=== PATIENT | male | born 1965 | race Asian ===

== ENCOUNTER 2024-09-05 10:23 | Outpatient (AMB) | payer OTHER, SELFPAY ==
--- NOTE | 2024-09-05 10:26 | A.OFFVIS_ITS ---
Vital Signs 09/05/24 10:28 Height 5 ft 9 in Weight 194 lb 4 oz BMI 28.7 BP 136/78 Blood Pressure Location Lt brachial Position Sitting Pulse 75 Pulse Source Pulse Oximeter Pulse Oximetry (%) 98 Oxygen Delivery Method Room Air Intake Visit Reasons: sleep apnea Allergies Penicillins Allergy (Intermediate, Verified 09/05/24 10:31) Unknown HPI HPI sleep apnea: Details: Jose is a pleasant 59 year old male, former 40 pack year smoker, quit 2000, with underlying CRISELDA on CPAP, asthma, HTN, DMII and hyperthyroidism. He was referred by PCP for management of CRISELDA. He has been using a CPAP machine for approximately 20 years, initially diagnosed with severe sleep apnea. Prior to initiating CPAP, he reported significant daytime fatigue, loud snoring, nonrestorative sleep and witnessed apneas. The patient reports no recent sleep studies and has had fluctuations in weight since initial study. He is not established with a [employer]. He is currently under the care of an operations supervisor chemical cleaning, managing asthma, who placed patient on Symbicort and levalbuterol however symptoms are infrequent and does not feel he needs respiratory medications. At this time, he denies respiratory symptoms. [facility] Social History (Updated 09/05/24 @ 10:31 by Cici Knight [facility]) Patient Tobacco Use Status: Former Tobacco user Review of Systems Const Denies chills, Denies excessive sweating, Denies fever(s), Denies headache(s) and Denies night sweats Eyes Denies dry eyes, Denies irritation and Denies itchy eyes ENT Reports Normal hearing present, Denies headache(s), Denies nasal congestion, Denies nasal discharge, Denies post nasal drip and Denies sore throat Card Denies chest pain, Denies chest pain at rest, Denies chest pain with activity, Denies claudication, Denies leg edema, Denies dyspnea, Denies dyspnea on exertion, Denies orthopnea and Denies paroxysmal nocturnal dyspnea Resp Denies chest congestion, Denies cough, Denies excessive phlegm production, Denies pain on inspiration, Denies pain with cough, Denies dyspnea, Denies dyspnea on exertion, Denies stridor and Denies wheezing Musc Denies myalgias Neuro Reports Normal hearing present and Denies headache(s) Endo Denies excessive sweating Dharmesh/Lymph Denies lymphadenopathy Aller/Immun Denies itchy eyes, Denies seasonal rhinorrhea and Denies wheezing Physical Exam Vital Signs: Last Vital Signs Pulse 75 09/05/24 10:28 BP 136/78 09/05/24 10:28 Pulse Ox 98 09/05/24 10:28 Oxygen Delivery Method Room Air 09/05/24 10:28 BMI result Body Mass Index 28.7 Const General: cooperative, healthy appearing, comfortable, no acute distress, well developed and alert Nutritional Appearance: obese Orientation/consciousness: patient oriented x3 Limitations: no limitations HEENT Head: Yes normal to inspection, Yes normocephalic and Yes atraumatic Ears: hearing grossly normal bilaterally and external ears normal Eyes General: appearance normal, both eyes and all related structures Eyelids: Yes eyelids normal Sclerae: sclerae normal EOM: EOMs intact bilaterally Neck Neck: Yes normal visual inspection and Yes no lymphadenopathy Lymphatic: no lymphadenopathy noted Chest Chest palpation & inspection: normal inspection of the chest Resp Effort & Inspection: normal respiratory effort, able to speak in complete sentences, no audible wheezes, no cough, no stridor, not tachypneic, no tripod positioning and no use of accessory muscles Auscultation: clear to auscultation bilaterally Cardio Jugular venous distension: no JVD Rate: regular rate Rhythm: regular rhythm Skin Other: warm, dry General skin exam: no rashes or lesions noted Neuro General: patient oriented x3 Cranial nerves: Yes Normal hearing present Cognition (Neuro): normal cognition Gait exam (Neuro): Normal gait present Extrem General: Yes normal to inspection, Yes capillary refill normal, Yes no clubbing, cyanosis or edema and Yes no pedal edema Psych Appearance: grossly normal and well kempt Speech and movement: Normal speech and movement present and Clear speech present Affect: normal affect Attitude: cooperative Thought process: Normal thought process present Thought content: Normal thought content present Insight: Good insight present (Psych) Judgement: Good judgement present (Psych) Assessment & Plan Assessment & Plan (1) Severe obstructive sleep apnea: Code(s): G47.33 - Obstructive sleep apnea (adult) (pediatric) Category: Medical Plan We discussed the need for a new sleep study to evaluate his current obstructive sleep apnea status and CPAP requirements, given prior PSG was 20 years ago and has had fluctuations in weight. Will send for home sleep study with the potential need for in lab titration study. We reviewed the potential for a new CPAP machine and the importance of compliance with therapy. All questions were answered and patient is in agreement of plan. Will follow up to review results or sooner if needed. Orders: Orders RT home sleep study Today G47.33 - Obstructive sleep apnea (adult) (pediatric) Coding Level of Care Code New Pt Level 3 (80569) Diagnoses Severe obstructive sleep apnea G47.33
[2024-09-05 10:28] VITALS: BP 136/78; PULSE 75; O2SAT 98; BMI 28.7
--- OUTSIDE RECORDS SUMMARY | 2024-09-05 11:09 | XMS_ITS | Clinical Summary ---
Author Organization [facility] Address [address] [place] [phone] Phone Care Team Providers Care Recruitment Coordinator Name Role Phone Alyse Jamil MD Primary Care Provider [phone] Encounters Date Type Department Care Team Description 07/16/2024 Telephone [facility] [address] [facility] [address] [place] [address] Jamel Galloway MD Records from Last 3 Months Medical History Medical History Date Comments Asthma DX:Asthma Cough DX:Cough 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 (CMS/HCC V24, CMS/HCC V28) DX:Type 2 marissa betes mellitus with complications ([facility]) Social History Tobacco Use Types Packs/Day Years Used Date Smoking Tobacco: Unknown Sex and Gender Information Value Date Recorded Sex Assigned at Not on file Legal Sex Male 2:11 AM EST Gender Identity Not on file Sexual Orientation Not on file Obstetrics History Last Filed Vital Signs Vital Sign Reading Time Taken Comments Blood Pressure 130/68 10/26/2023 2:58 PM EDT Pulse 67 10/26/2023 2:58 PM EDT Temperature - - Respiratory Rate - - Oxygen Saturation - - Inhaled Oxygen Concentration - - Weight 92.1 kg (203 lb) 10/26/2023 2:58 PM EDT Height 175.3 cm (5' 9 ) 07/03/2023 2:31 PM EDT Body Mass Index 29.98 07/03/2023 2:31 PM EDT Plan of Treatment Upcoming Encounters Date Type Department Care Team ([facility] st Contact Info) Description 10/09/2024 8:[address] [facility] [address] [place] [address] Health Maintenance Due Date Last Done Comments COVID-19 Vaccine (#1) 08[birth year]29/1970 DTaP,Tdap,and Td Vaccines (1 - Tdap) 1985 Hepatitis B Vaccines (1 of 3 - 19+ 3-dose series) 1985 Pneumococcal Vaccine: 50+ Years (1 of 1 - PCV) 2016 Zoster Vaccines (1 of 2) 2016 Cholesterol Screening (Lipid Panel) 02/12/2022 Depression Screening 02/12/2022 HIV Screening 02/12/2022 Hepatitis C Screening 02/12/2022 Social Influencers of Health Screening 02/12/2022 Influenza Vaccine (Season Ended) 2024 Colorectal Cancer Screening: FIT-DNA (Cologuard) 09/05/2026 09/06/2023, 09/06/2023, 08/23/2019 HIB Vaccines Aged Out No longer eligi ble based on patient's age to complete this topic HPV Vaccines Aged Out No longer eligi ble based on patient's age to complete this topic Hepatitis A Vaccines Aged Out No long er eligible based on patient's age to complete this topic IPV Vaccines Aged Out No longer eligi ble based on patient's age to complete this topic MMR Vaccines Aged Out No longer eligi ble based on patient's age to complete this topic Meningococcal ACWY Vaccine Aged Out N o longer eligible based on patient's age to complete this topic Meningococcal B Vaccine Aged Out No l onger eligible based on patient's age to complete this topic Pneumococcal Vaccine: Pediatrics (0 to 5 Years) and At-Risk Patients (6 to 64 Years) Aged Out No longer eligible b ased on patient's age to complete this topic RSV Immunization Patients Under 20 months Aged Out No longer eligible b ased on patient's age to complete this topic Varicella Vaccines Aged Out No longer eligible based on patient's age to complete this topic Insurance [employer] Care Teams Recruitment Coordinator Relationship Specialty Start Date End Date Alyse Jamil MD PCP - General 02/19/23
== END 2024-09-05 11:02 | disposition home or self-care (01) ==
LOC: HO.HPSW 10:24
PROVIDERS: Visit Provider Nurse Practitioner Family
DX: G47.33 Obstructive sleep apnea (adult) (pediatric) (principal)
CPT/HCPCS: 99203

== ENCOUNTER → 2024-11-19 09:29 | Outpatient (REF) | payer OTHER, SELFPAY ==
--- OUTSIDE RECORDS SUMMARY | 2024-11-19 11:20 | XMS_ITS | Patient Health Record ---
Author Organization [facility] [address] Address [address] [facility] [place] [address] Care Team Providers Care Acute Care Occupational Therapist Name Role Phone TOMMY JAMIL Unavailable [phone] EDWINYASMINE Llanos Unavailable [phone] ASHLYN CALERO Unavailable [phone] Allergies Allergen (clinical drug ingredient) Drug/Non Drug Allergy documented on EMR Reaction Allergy Type Onset Date Status PCN (uncoded) rash Allergy Active albuterol Albuterol heart palpitations Drug Allergy Active Pollen Pollen Unknown Allergy Active Results Component Value Reference Range Notes EKG Reviewed date:06/18/2024 10:14:51 AM Interpretation: Performing Lab: Notes/Report: ECGDiastolicBP 78 ECGHr 82 ECGPRInterval 200 ECGPWaveAxis 42 ECGQRSDuration 100 ECGQrsWaveAxis 4 ECGQTcInterval 404 ECGQTInterval 366 ECGSystolicBP 132 ECGTWaveAxis 136 RR_DiastolicBP 0 RR_MaxRRInterval 0 RR_MeanHR 0 RR_MeanRRInterval 0 RR_MinRRInterval 0 RR_NumBeats 0 RR_NumNormalBeats 0 RR_SystolicBP 0 TSH+T3+Free T4+T3 Free Reviewed date:11/03/2024 12:05:17 PM Interpretation: Performing Lab:[facility], [address], [place], Phone - [phone], Director - Teodoro Notes/Report: TSH-ICMA 0.29 Reference Range: Non- Adult 0.450-4.500 Triiodothyronine (T-3), Serum 101 Reference Range: Adults: 55 - 170 Free T-3 3.8 Reference Range: >=20y: 2.0 - 4.4 Free T4 by Dialysis/Print Washer 1.5 This test was developed and its performance characteristics determined by [facility]. It has not been cleared or approved by the Food and Drug Administration. Reference Range: Pubertal Children and Adults: 0.8 - 1.7 Hemoglobin A1c Reviewed date:11/03/2024 12:05:22 PM Interpretation: Performing Lab:[facility] [place], [address] [facility], Phone - [phone], Director - Teodoro Notes/Report: Hemoglobin A1c 7.6 Reference Range: [place] Diabetes Association (ADA) Guidelines: <5.7: Decreased risk for diabetes 5.7 - 6.4: Increased risk for diabetes >6.4: Ongoing Hyperglycemia of any cause <7.0: Glycemic control for adults with diabetes Estimated Average Glucose 171 PSA (Reflex To Free) (Serial )-[id number] Reviewed date:11/03/2024 08:20:01 AM Interpretation: Performing Lab:[facility] [place], [address] [facility], Phone - [phone], Director - Teodoro Notes/Report: Prostate Specific Ag 0.7 0.0-4.0 ng/mL Hortensia ECLIA methodology. . According to the [place] [employer], Serum PSA should decrease and remain at undetectable levels after radical prostatectomy. The AUA defines biochemical recurrence as an initial PSA value 0.2 ng/mL or greater followed by a subsequent confirmatory PSA value 0.2 ng/mL or greater. Values obtained with different assay methods or kits cannot be used interchangeably. Results cannot be interpreted as absolute evidence of the presence or absence of malignant disease. Reflex Criteria The percent free PSA is performed on a reflex basis only when the total PSA is between 4.0 and 10.0 ng/mL. Comp. Metabolic Panel (14)-3 Reviewed date:11/03/2024 12:05:06 PM Interpretation: Performing Lab:[facility] [place], [address] , [place], Phone - [phone], Director - Teodoro Notes/Report: Glucose 154 70-99 mg/dL BUN 11 6-24 mg/dL Creatinine 0.79 0.76-1.27 mg/dL eGFR 103 >59 mL/min/1.73 BUN/Creatinine Ratio 14 9-20 Sodium 143 134-144 mmol/L Potassium 3.7 3.5-5.2 mmol/L Chloride 104 96-106 mmol/L Carbon Dioxide, Total 21 20-29 mmol/L Calcium 9.2 8.7-10.2 mg/dL Protein, Total 6.6 6.0-8.5 g/dL Albumin 4.5 3.8-4.9 g/dL Globulin, Total 2.1 1.5-4.5 g/dL Bilirubin, Total 0.5 0.0-1.2 mg/dL Alkaline Phosphatase 74 44-121 IU/L AST (SGOT) 24 0-40 IU/L ALT (SGPT) 51 0-44 IU/L Lipid Panel-[id number] Reviewed date:11/03/2024 12:05:12 PM Interpretation: Performing Lab:[email or web address], [address] [facility], Phone - [phone], Director - Teodoro Notes/Report: Cholesterol, Total 152 100-199 mg/dL Triglycerides 82 0-149 mg/dL HDL Cholesterol 39 >39 mg/dL VLDL Cholesterol Luis Carlos 16 5-40 mg/dL LDL Chol Calc (NIH) 97 0-99 mg/dL Vitamin D, 71-[id number] Reviewed date:11/03/2024 12:06:10 PM Interpretation: Performing Lab:[email or web address] [place], [address] , [place], Phone - [phone], Director - Teodoro Notes/Report: Vitamin D, 25-Hydroxy 18.6 30.0-100.0 ng/mL Vitamin D deficiency has been defined by the [place] of [employer] and an Endocrine Society practice guideline as a level of serum 25-OH vitamin D less than 20 ng/mL (1,2). The Endocrine Society went on to further define vitamin D insufficiency as a level between 21 and 29 ng/mL (2). 1. IOM ([place] of [employer]). 2010. Dietary reference intakes for calcium and D. [place]: The National Academies Press. 2. Sadia MF, Sirena NC, Efren-Osiel GILMAN, et al. Evaluation, treatment, and prevention of vitamin D deficiency: an Endocrine Society clinical practice guideline. JCEM. 2010; 96(7):1911-30. CBC With Differential/Platel et-[id number] Reviewed date:11/03/2024 08:20:01 AM Interpretation: Performing Lab:[email or web address] [place], [address] , [place], Phone - [phone], [facility] Notes/Report: WBC 7.3 3.4-10.8 x10E3/uL RBC 4.76 4.14-5.80 x10E6/uL Hemoglobin 14.1 13.0-17.7 g/dL Hematocrit 42.0 37.5-51.0 % MCV 88 79-97 fL MCH 29.6 26.6-33.0 pg MCHC 33.6 31.5-35.7 g/dL RDW 13.4 11.6-15.4 % Platelets 205 150-450 x10E3/uL Neutrophils 65 Not Estab. % Lymphs 23 Not Estab. % Monocytes 7 Not Estab. % Eos 4 Not Estab. % Basos 1 Not Estab. % Neutrophils (Absolute) 4.7 1.4-7.0 x10E3/uL Lymphs (Absolute) 1.7 0.7-3.1 x10E3/uL Monocytes(Absolute) 0.5 0.1-0.9 x10E3/uL Eos (Absolute) 0.3 0.0-0.4 x10E3/uL Baso (Absolute) 0.1 0.0-0.2 x10E3/uL Immature Granulocytes 0 Not Estab. % Immature Grans (Abs) 0.0 0.0-0.1 x10E3/uL Vitamin [id number] Reviewed date:11/03/2024 08:11:16 AM Interpretation: Performing Lab:[facility] [place], [address] [facility], Phone - [phone], Director - [facility] Notes/Report: Vitamin B12 548 650-6878 pg/mL Comp. Metabolic Panel (14)-3 [id number] Reviewed date:12/18/2023 02:12:11 PM Interpretation: Performing Lab:[facility] [place], [address] [facility], Phone - [phone], [facility] Notes/Report: Glucose 156 70-99 mg/dL BUN 13 6-24 mg/dL Creatinine 0.87 0.76-1.27 mg/dL eGFR 101 >59 mL/min/1.73 BUN/Creatinine Ratio 15 9-20 Sodium 145 134-144 mmol/L Potassium 4.4 3.5-5.2 mmol/L Chloride 106 96-106 mmol/L Carbon Dioxide, Total 21 20-29 mmol/L Calcium 9.9 8.7-10.2 mg/dL Protein, Total 7.2 6.0-8.5 g/dL Albumin 4.8 3.8-4.9 g/dL Globulin, Total 2.4 1.5-4.5 g/dL Bilirubin, Total 0.4 0.0-1.2 mg/dL Alkaline Phosphatase 83 44-121 IU/L AST (SGOT) 31 0-40 IU/L ALT (SGPT) 46 0-44 IU/L Lipid Panel-[id number] Reviewed date:12/18/2023 02:12:11 PM Interpretation: Performing Lab:[email or web address], [address] [place] [address], Phone - [phone], Director - MDJodry Notes/Report: Cholesterol, Total 165 100-199 mg/dL Triglycerides 145 0-149 mg/dL HDL Cholesterol 40 >39 mg/dL VLDL Cholesterol Luis Carlos 26 5-40 mg/dL LDL Chol Calc (NIH) 99 0-99 mg/dL Albumin/Creatinine Ratio,Uri ne-[id number] Reviewed date:12/18/2023 02:12:11 PM Interpretation: Performing Lab:[email or web address], [address] [place] [address], Phone - [phone], Director - MDJodry Notes/Report: Creatinine, Urine 180.4 Not Estab. mg/dL Albumin, Urine 64.6 Not Estab. ug/mL Alb/Creat Ratio 36 0-29 mg/g creat Normal: 0 - 29 Moderately increased: 30 - 300 Severely increased: >300 CBC With Differential/Platel et-[id number] Reviewed date:12/18/2023 02:12:11 PM Interpretation: Performing Lab:[email or web address], [address] [place] [address], Phone - [phone], Director - MDJodry Notes/Report: WBC 7.9 3.4-10.8 x10E3/uL RBC 5.14 4.14-5.80 x10E6/uL Hemoglobin 15.8 13.0-17.7 g/dL Hematocrit 46.1 37.5-51.0 % MCV 90 79-97 fL MCH 30.7 26.6-33.0 pg MCHC 34.3 31.5-35.7 g/dL RDW 13.6 11.6-15.4 % Platelets 221 150-450 x10E3/uL Neutrophils 71 Not Estab. % Lymphs 19 Not Estab. % Monocytes 7 Not Estab. % Eos 2 Not Estab. % Basos 1 Not Estab. % Neutrophils (Absolute) 5.5 1.4-7.0 x10E3/uL Lymphs (Absolute) 1.5 0.7-3.1 x10E3/uL Monocytes(Absolute) 0.6 0.1-0.9 x10E3/uL Eos (Absolute) 0.2 0.0-0.4 x10E3/uL Baso (Absolute) 0.1 0.0-0.2 x10E3/uL Immature Granulocytes 0 Not Estab. % Immature Grans (Abs) 0.0 0.0-0.1 x10E3/uL Hemoglobin [id number] Reviewed date:12/18/2023 02:12:11 PM Interpretation: Performing Lab:[facility], Phone - [phone], Director - MDJodry Notes/Report: Hemoglobin A1c 8.8 4.8-5.6 % . Prediabetes: 5.7 - 6.4 Diabetes: >6.4 Glycemic control for adults with diabetes: <7.0 Triiodothyronine (T3), Free- [id number] Reviewed date:03/11/2024 08:00:28 AM Interpretation: Performing Lab:[email or web address] [address], Phone - [phone], Director - Vas[facility] Notes/Report: Triiodothyronine (T3), Free 3.5 2.0-4.4 pg/mL [id number] Reviewed date:03/11/2024 08:00:28 AM Interpretation: Performing Lab:[facility] [address], Phone - [phone], Director - MDJodry Notes/Report: TSH 0.558 0.450-4.500 uIU/mL Thyroxine (T4) Free, Direct- [id number] Reviewed date:03/11/2024 08:00:28 AM Interpretation: Performing Lab:[facility] [address], Phone - [phone], Director - MDJodry Notes/Report: T4,Free(Direct) 1.62 0.82-1.77 ng/dL Reason For Referral Reason evaluate & treat Diagnosis 1 Mouth breathing (R06 .5) Referral Organization [facility] SHAHIDA CARBALLO Referring Provider First Name ASHLYN Referring Provider Last Name GALILEA Referring Provider [facility] Internal edicine Referred Provider Specialty Ear, nose an d throat surgeon Clinical Notes BluLiam hernandez 01/11 09:00:14 AM > faxed pt info to [facility] p) [phone] f) [phone], Carleen Zayas 02/19/2024 02:48:55 PM > Scheduled for 08/29 at 11:15 am. Pt aware Referral Priority Routine Reason Evaluate& Treat Diagnosis 1 Uncontrolled mild pe rsistent allergic asthma (J45.30) Referral Organization [facility] SHAHIDA CARBALLO Referring Provider First Name TOMMY Referring Provider Last Name TONY Referring Provider [facility] edicine Referred Provider Specialty Allergy/Immu nology General Notes Barb Aguirre 2024 11:46:29 AM > filled out form for [facility] and faxed over with recent notes, T : [phone] F : [phone] Clinical Notes Carleen Zayas 02:56:59 PM > Scheduled for 06/05 at 9:30 am. Pt aware Referral Priority Routine Reason Dr soto Diagnosis 1 CRISELDA (obstructive sle ep apnea) (G47.33) Referral Organization [facility] SHAHIDA CARBALLO Referring Provider First Name ASHLYN Referring Provider Last Name GALILEA Referring Provider [facility] edicine Referred Provider Chloe Soto Referred Provider Specialty Pulmonology General Notes EVERETTE BARNARD 0 06/04/2024 10:22:35 AM >[address] [place] [address], [facility] [address] [address], [phone], [phone] Clinical Notes Carleen Zayas 07/2024 03:04:47 PM > The patient canceled his appointment for 06/25 and has not rescheduled yet Referral Priority Routine Reason Dr. Steele Diagnosis 1 CRISELDA (obstructive sle ep apnea) (G47.33) Referral Organization [facility] SHAHIDA CARBALLO Referring Provider First Name ASHLYN Referring Provider Last Name GALILEA Referring Provider 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) Referral Organization [facility] [address] Referring Provider First Name ASHLYN Referring Provider Last Name GALILEA Referring Provider [facility] Internal edicine Referred Provider Specialty Vascular Lety kristie General Notes JENNYADIRA THIBODEAUXEVERETTE 0 07/23/2024 04:14:07 PM >information filled out on form and faxed to [facility], [phone], fax: [phone] Clinical Notes Carleen Zayas 01:02:09 PM > refaxed [phone], Carleen Zayas 08/06/2024 01:40:51 PM > refaxed to [phone], Carleen Zayas 08/11/2024 01:37:33 PM >, EVERETTE BARNARD 08/15/2024 11:37:56 AM >[facility] does not see pt unless it is in the legs, resent referral to [facility], p- , [phone], Carleen Zayas 08/22/2024 02:33:54 PM > Scheduled for 09/23 at 8:20 am. Pt aware Referral Priority Routine Reason [facility] owens Diagnosis 1 Hiatal hernia (K44.9 ) Referral Organization [facility] [address] Referring Provider First Name ASHLYN Referring Provider Last Name GALILEA Referring Provider [facility] edicine Referred Provider Naya OWENS Referred Provider Specialty Gastroentero logy General Notes EVON EVERETTE 0 10/15/2024 10:45:36 AM >Information sent to Dr owens with [facility], p- [phone], f- [phone] Referral Priority Routine Medications Medication SIG (Take, Route, Frequency, Duration) Notes Start Date End Date Status Zituvio 50 MG 2 tablets Orally Onc e a day Active Viagra 100 MG 1 tablet as needed f or sex Orally Once a day; Duration: 30 day(s) Active FreeStyle Angelita 3 Sensor - as directed d x e11.8 every 14 days; Duration: 30 days 01/05/2022 Active Losartan Potassium 100 MG TAKE 1 TABLET BY MOUTH EVERY DAY; Duration: 90 Active Atorvastatin Calcium 20 MG TAKE 1 TABLET BY MOUTH EVERY DAY; Duration: 90 Active Ozempic (0.25 or 0.5 MG/DOSE) 2 MG/3ML as directed Subcutaneous once a week; Duration: 30 days Active Ozempic (1 MG/DOSE) 4 MG/3ML Inject 1mg once a week Subcutaneous once a week; Duration: 30 days 05/29/2024 Active Pen Finlayson 32G X 6 MM as directed; Dura tion: 30 days Active Propranolol HCl 40 MG TAKE 1 TABLET BY M OUTH TWICE A DAY; Duration: 90 Active amLODIPine Besylate 5 MG TAKE 1 TABLET B Y MOUTH EVERY DAY; Duration: 90 Active metFORMIN HCl 500 MG TAKE 1 TABLET BY MO UTH TWICE A DAY WITH FOOD; Duration: 90 Active Mounjaro 2.5 MG/0.5ML 2.5 mg Subcutaneou s weekly; Duration: 28 days 10/27/2024 Active Cholecalciferol 1.25 MG (87928 UT) 1 capsule Orally once a week; Duration: 60 days 10/27/2024 Active Klor-Con M20 20 MEQ TAKE 1 TABLET BY SHANNAN TH THREE TIMES A DAY WITH FOOD; Duration: 90 Active Omeprazole 20 MG TAKE 1 CAPSULE BY MO UTH EVERY DAY 30 MINUTES BEFORE MORNING MEAL; Duration: 90 Active Immunizations Vaccine Route Administration Date Status Comme nts Influenza, seasonal, injectable, preservative free, 3 yrs and above IM Intramuscular 02/19/2019 Administered Social History Tobacco Use: Social History Observation Description Date Details (start date - stop date) Never Smoker NA - NA Tobacco Use/Smoking Question Answer Notes Are you a nonsmoker Section Notes: [employer] Tob: None ETOH: Rare [employer] Tob: None ETOH: Rare [employer] Tob: None ETOH: Rare [employer] Tob: None ETOH: Rare [employer] Tob: None ETOH: Rare [employer] Tob: None ETOH: Rare [employer] Tob: None ETOH: Rare Problems Problem Type SNOMED Code ICD Code Onset Dates Problem Status W/U Status Risk Notes Problem Information temporarily unavailable 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) Active confirmed Problem Information temporarily unavailable Thyroiditis, unspecified (E06.9) Active confirmed Problem Information temporarily unavailable Type 2 diabetes mellitus with diabetic peripheral angiopathy without gangrene (E11.51) Active confirmed Problem Information temporarily unavailable Type 2 diabetes mellitus with hyperglycemia (E11.65) Active confirmed Problem Information temporarily unavailable Vitamin D deficiency, unspecified (E55.9) Active confirmed Problem Information temporarily unavailable Other obesity (E66.8) Active confirmed Problem Information temporarily unavailable Obesity, unspecified (E66.9) Active confirmed Problem Information temporarily unavailable Essential (primary) hypertension (I10) Active confirmed Problem Information temporarily unavailable Other atopic dermatitis (L20.89) Active confirmed Problem Information temporarily unavailable Mouth breathing (R06.5) Active confirmed Problem Information temporarily unavailable Encounter for screening for malignant neoplasm of prostate (Z12.5) Active confirmed Problem Information temporarily unavailable Encounter for screening for diabetes mellitus (Z13.1) Active confirmed Problem Information temporarily unavailable Encounter for screening for lipoid disorders (Z13.220) Active confirmed Problem Information temporarily unavailable Encounter for screening for other suspected endocrine disorder (Z13.29) Active confirmed Problem Information temporarily unavailable Cataract extraction status, left eye (Z98.42) Active confirmed Problem Information temporarily unavailable Hyperlipidemia, unspecified (E78.5) Active confirmed Problem Information temporarily unavailable Essential (primary) hypertension (I10) Active confirmed Problem Information temporarily unavailable Colon cancer screening (Z12.11) Active confirmed Problem Information temporarily unavailable Annual physical exam (Z00.00) Active confirmed Problem Information temporarily unavailable Vitamin D deficiency (E55.9) Active confirmed Problem Information temporarily unavailable Hypogonadism in male (E29.1) Active confirmed Problem Information temporarily unavailable Tinnitus, unspecified laterality (H93.19) Active confirmed Problem Information temporarily unavailable Accelerated essential hypertension (I10) Active confirmed Problem Information temporarily unavailable Type 2 diabetes mellitus with complications (E11.8) Active confirmed Problem Information temporarily unavailable Uncontrolled hypertension (I10) Active confirmed Problem Information temporarily unavailable CRISELDA (obstructive sleep apnea) (G47.33) Active confirmed Problem Information temporarily unavailable Type 2 diabetes mellitus without complication, without long-term current use of insulin (E11.9) Active confirmed Problem Information temporarily unavailable Type 2 diabetes mellitus without complication, unspecified whether halfway insulin use (E11.9) Active confirmed Problem Information temporarily unavailable Dyslipidemia (E78.5) Active confirmed Problem Information temporarily unavailable Hypothyroidism (acquired) (E03.9) Active confirmed Problem Information temporarily unavailable Bilateral hearing loss, unspecified hearing loss type (H91.93) Active confirmed Problem Information temporarily unavailable Complication of diabetes mellitus (E11.8) Active confirmed Problem Information temporarily unavailable Psoriasis (L40.9) Active confirmed Problem Information temporarily unavailable Poorly controlled diabetes mellitus (E11.65) Active confirmed Problem Information temporarily unavailable Controlled type 2 diabetes mellitus with hyperglycemia, without long-term current use of insulin (E11.65) Active confirmed Problem Information temporarily unavailable Atherosclerosis (I70.90) Active confirmed Problem Information temporarily unavailable Combined hyperlipidemia (E78.2) Active confirmed Problem Information temporarily unavailable Hyperthyroidism (E05.90) Active confirmed Problem Information temporarily unavailable Low blood potassium (E87.6) Active confirmed Problem Information temporarily unavailable Low potassium syndrome (E87.6) Active confirmed Problem Information temporarily unavailable Vision changes (H53.9) Active confirmed Problem Information temporarily unavailable New onset type 2 diabetes mellitus (E11.9) Active confirmed Problem Information temporarily unavailable Asthma (J45.909) Active confirmed Problem Information temporarily unavailable Encounter for screening for endocrine disorder (Z13.29) Active confirmed Problem Information temporarily unavailable Lipid screening (Z13.220) Active confirmed Problem Information temporarily unavailable Hyperglycemia due to diabetes mellitus (E11.65) Active confirmed Problem Information temporarily unavailable Type 2 diabetes with complication (E11.8) Active confirmed Problem Information temporarily unavailable Food sticks on swallowing (R13.10) Active confirmed Problem Information temporarily unavailable Uncontrolled mild persistent allergic asthma (J45.30) Active confirmed Problem Information temporarily unavailable 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) Active confirmed Vital Signs Heart Rate 76 /min 10/27/2024 Blood pressure diastolic 80 mm Hg 10/27/2024 Oximetry 93 % 10/27/2024 Height 69 in 10/27/2024 Blood pressure systolic 132 mm Hg 10/27/2024 Weight 193.4 lbs 10/27/2024 BMI 28.56 kg/m2 10/27/2024 Encounters Encounter Location Date Provider Diagnosis [facility] [address] [place] [address] 02/05/2024 ASHLYN GALILEA Type 2 diabetes with complication E11.[address] [address] [place] [address] 02/13/2024 TALAL JAMIL [facility] [address] [facility] [address] [place] [address] 04/24/2024 ASHLYN GALILEA [facility] [address] [address] 05/29/2024 ASHLYN GALILEA [facility] [address] [place] [address] 06/03/2024 ASHLYN GALILEA [facility] [address] [address] 06/18/2024 TALAL JAMIL Controlled type 2 di abetes mellitus with hyperglycemia, without long-term current use of insulin E11.65 [facility] [address] [address] 07/15/2024 ASHLYN GALILEA [facility] [address] [place] [address] 07/16/2024 ASHLYN GALILEA [facility] [address] [address] 07/21/2024 ASHLYN GALILEA [facility] [address] [address] 09/11/2024 ASHLYN GALILEA [facility] [address] [address] 10/09/2024 TALAL JAMIL [facility] [address] [place] [address] 10/23/2024 ASHLYN GALILEA [facility] [address] [address] 10/27/2024 ASHLYN GALILEA [facility] [address] [place] [address] 12/20/2023 YASMINE EDWIN Type 2 diabetes diaz itus without complication, without long-term current use of insulin E11.9 ; Hyperglycemia due to diabetes mellitus E11.65 ; Dyslipidemia E78.5 and Hypothyroidism (acquired) E03.[address] [address] [place] [address] 01/31/2024 ASHLYN GALILEA Type 2 diabetes with complication E11.8 ; Cataract extraction status, left eye Z98.42 ; Obesity, unspecified E66.9 ; Hyperthyroidism E05.90 ; Mouth breathing R06.5 and CRISELDA (obstructive sleep apnea) G47.[address] [place] [address] 03/13/2024 ASHLYN GALILEA Controlled type 2 di abetes mellitus with hyperglycemia, without long-term current use of insulin E11.65 ; Type 2 diabetes with complication E11.8 ; Cataract extraction status, left eye Z98.42 ; Obesity, unspecified E66.9 ; Hyperthyroidism E05.90 ; Mouth breathing R06.5 and CRISELDA (obstructive sleep apnea) G47.[address] [place] [address] 06/18/2024 ASHLYN GALILEA Controlled type 2 di abetes mellitus with hyperglycemia, without long-term current use of insulin E11.65 ; Type 2 diabetes with complication E11.8 ; Cataract extraction status, left eye Z98.42 ; Obesity, unspecified E66.9 ; Hyperthyroidism E05.90 ; Mouth breathing R06.5 ; CRISELDA (obstructive sleep apnea) G47.33 ; Chest pain, unspecified R07.9 ; Vitamin D deficiency, unspecified E55.9 ; Food sticks on swallowing R13.10 and Vision changes H53.[address] [place] [address] 10/27/2024 ASHLYN GALILEA Controlled type 2 di abetes mellitus with hyperglycemia, without long-term current use of insulin E11.65 ; Type 2 diabetes with complication E11.8 ; Cataract extraction status, left eye Z98.42 ; Obesity, unspecified E66.9 ; Hyperthyroidism E05.90 ; Mouth breathing R06.5 ; CRISELDA (obstructive sleep apnea) G47.33 ; Chest pain, unspecified R07.9 ; Vitamin D deficiency, unspecified E55.9 ; Food sticks on swallowing R13.10 ; Vision changes H53.9 and Encounter for examination of blood pressure without abnormal findings Z01.[address] [place] [address] 05/29/2024 ASHLYN GALILEA Controlled type 2 di abetes mellitus with hyperglycemia, without long-term current use of insulin E11.65 ; Type 2 diabetes with complication E11.8 ; Cataract extraction status, left eye Z98.42 ; Obesity, unspecified E66.9 ; Hyperthyroidism E05.90 ; Mouth breathing R06.5 and CRISELDA (obstructive sleep apnea) G47.33 Assessments Encounter Date Diagnosis (ICD Code) Assessment Notes Treatment Notes Treatment Clinical Notes Section Notes 01/31/2024 Type 2 diabetes with complication (ICD-10 - E11.8) Jose is a 58-year-old male with a past medical history of hypothyroidism, type 2 diabetes, essential hypertension, hyperlipidemia, cataract extraction, glaucoma who presents today for a 6-week follow-up visit with no acute concerns today. #Type 2 diabetes: Patient's last hemoglobin A1c in office was 8.8%, today's hemoglobin A1c is 8.7%. Patient is to continue taking Zituvio 50 mg tablets as well as Ozempic once weekly. Ozempic sample pen given in office today, patient shown how to properly inject himself, was given alcohol wipes and was injected today.We will recheck the patient's hemoglobin A1c at his follow-up appointment #Glaucoma: Patient states that he regularly follows with his diesel motor mechanic. #Nasal congestion: Patient states that he has been continuing to use Flonase, has tried mouth and nasal strips, has tried his CPAP nasal pillow however still continues to mouth breathe therefore ENT referral will be placed today. #Low TSH: Last TSH conducted on July 03, 2023 revealed a value of 0.297, patient did not obtain a T3 and T4, order placed for a repeat TSH, T3-T4 to further evaluate his thyroid function. All questions have been answered to patient's satisfaction. Patient verbalized understanding of diagnosis and treatments explained. Advised to call sooner prior to next visit it any questions/concerns arise. Case discussed with Alessandro HURTADO who reviewed the assessment and plan. Chart, medications, labs, vital signs reviewed. Dictation was accomplished with the use of [employer] voice recognition software, which is prone to medical misidentifications and grammatical errors. This are unintentional and the practitioner does try to identify and correct these, but some could still be present. Please do not hesitate to contact practitioner for clarification. 02/05/2024 Type 2 diabetes with complication (ICD-10 - E11.8) 01/31/2024 Cataract extraction status, left eye (ICD-10 - Z98.42) Jose is a 58-year-old male with a past medical history of hypothyroidism, type 2 diabetes, essential hypertension, hyperlipidemia, cataract extraction, glaucoma who presents today for a 6-week follow-up visit with no acute concerns today. #Type 2 diabetes: Patient's last hemoglobin A1c in office was 8.8%, today's hemoglobin A1c is 8.7%. Patient is to continue taking Zituvio 50 mg tablets as well as Ozempic once weekly. Ozempic sample pen given in office today, patient shown how to properly inject himself, was given alcohol wipes and was injected today.We will recheck the patient's hemoglobin A1c at his follow-up appointment #Glaucoma: Patient states that he regularly follows with his diesel motor mechanic. #Nasal congestion: Patient states that he has been continuing to use Flonase, has tried mouth and nasal strips, has tried his CPAP nasal pillow however still continues to mouth breathe therefore ENT referral will be placed today. #Low TSH: Last TSH conducted on July 03, 2023 revealed a value of 0.297, patient did not obtain a T3 and T4, order placed for a repeat TSH, T3-T4 to further evaluate his thyroid function. All questions have been answered to patient's satisfaction. Patient verbalized understanding of diagnosis and treatments explained. Advised to call sooner prior to next visit it any questions/concerns arise. Case discussed with Alessandro HURTADO who reviewed the assessment and plan. Chart, medications, labs, vital signs reviewed. Dictation was accomplished with the use of [employer] voice recognition software, which is prone to medical misidentifications and grammatical errors. This are unintentional and the practitioner does try to identify and correct these, but some could still be present. Please do not hesitate to contact practitioner for clarification. 03/13/2024 Controlled type 2 diabetes mellitus with hyperglycemia, without long-term current use of insulin (ICD-10 - E11.65) Jose is a 58-year-old male with a past medical history of hypothyroidism, type 2 diabetes, essential hypertension, hyperlipidemia, cataract extraction, glaucoma who presents today for a 6-week follow-up visit with no acute concerns today. #Type 2 diabetes: Patient's last hemoglobin A1c in office was 8.8%, patient is to continue taking Zituvio 50 mg tablets as well as increase Ozempic 0.5mg. #Glaucoma: Patient states that he regularly follows with his diesel motor mechanic.Stat es he is being seen in April for a potential surgery consultation #Nasal congestion: Patient states that he has been continuing to use Flonase, has tried mouth and nasal strips, has tried his CPAP nasal pillow. Has ENT appointment scheduled for August 2024 #Coughing fits: Patient encouraged to trial a alternative antihistamine such as Ngoc, Zyrtec or Claritin as his body may have developed a tolerance to Flonase oral medication. Additionally patient educated to utilize a humidifier in his home to ensure the areas moisturized as this may be contributing towards his coughing and sneezing. Reassuring that patient does have a ENT referral placed. #Low TSH: Last TSH conducted on July 03, 2023 revealed a value of 0.297. Repeat labs from February 2024 within normal limits. All questions have been answered to patient's satisfaction. Patient verbalized understanding of diagnosis and treatments explained. Advised to call sooner prior to next visit it any questions/concerns arise. Case discussed with Alessandro HURTADO who reviewed the assessment and plan. Chart, medications, labs, vital signs reviewed. Dictation was accomplished with the use of [employer] voice recognition software, which is prone to medical misidentifications and grammatical errors. This are unintentional and the practitioner does try to identify and correct these, but some could still be present. Please do not hesitate to contact practitioner for clarification. 05/29/2024 Controlled type 2 diabetes mellitus with hyperglycemia, without long-term current use of insulin (ICD-10 - E11.65) Jose is a 58-year-old male with a past medical history of hypothyroidism, type 2 diabetes, essential hypertension, hyperlipidemia, and glaucoma who presents to the office today for a preoperative visit. #Type 2 diabetes: Patient's Hemoglobin A1c in office today 7.9%, this is an improvement from the previous value of 8.8%. patient is to continue taking Zituvio 50 mg tablets as well as increase to Ozempic 1.0 mg. #Glaucoma: Surgery scheduled for June 23 and July 08. At this time patient is cleared for surgery we will fax office note over so the surgeon is aware of patient's A1c at this time #Nasal congestion: Patient states that he has been continuing to use Flonase, has tried mouth and nasal strips, has tried his CPAP nasal pillow. Has ENT appointment scheduled for August 2024. Consider Singulair at follow-up #Coughing fits: No improvement with antihistamine such as allograft, Zyrtec or Claritin. Additionally patient educated to utilize a humidifier in his home to ensure the areas moisturized as this may be contributing towards his coughing and sneezing. Reassuring that patient does have a ENT referral placed. #Low TSH: Last TSH conducted on July 03, 2023 revealed a value of 0.297. Repeat labs from February 2024 within normal limits. All questions have been answered to patient's satisfaction. Patient verbalized understanding of diagnosis and treatments explained. Advised to call sooner prior to next visit it any questions/concerns arise. Case discussed with Alessandro HURTADO who reviewed the assessment and plan. Chart, medications, labs, vital signs reviewed. Dictation was accomplished with the use of [employer] voice recognition software, which is prone to medical misidentifications and grammatical errors. This are unintentional and the practitioner does try to identify and correct these, but some could still be present. Please do not hesitate to contact practitioner for clarification. 06/18/2024 Controlled type 2 diabetes mellitus with hyperglycemia, without long-term current use of insulin (ICD-10 - E11.65) Jose is a 58-year-old male with a past medical history of hypothyroidism, type 2 diabetes, essential hypertension, hyperlipidemia, cataract extraction, glaucoma who presents today for a 6-week follow-up visit with no acute concerns today. #Intermittent blackout vision: At this time we will be conducting an extensive workup for this chief complaint. Patient states that this has been intermittently occurring for numerous years. Patient denies any chest pain, shortness of breath at this time. EKG in office does demonstrate, T wave abnormality, possible anterior lateral ischemia, after discussing with Dr. Jamil this is considered normal for this patient as he may have underlying heart disease.. Will be obtaining a barium swallow as the patient does have this chief complaint only upon swallowing, states that he intermittently feels a stuck sensation , consider ordering an endoscopy if barium swallow was negative. Additionally we will be ordering a thyroid ultrasound as the patient does have a history of hyperthyroidism to ensure there are no goiters, nodules compressing on the esophagus or airway potentially. Along with thyroid ultrasound, carotid artery ultrasound bilaterally will also be ordered to ensure there is no stenosis or occlusions at this time. Consider CT scan of the head with contrast if all scans are negative to ensure there are no compressing lesions on optic nerve causing the blurry sensation upon swallowing. Differential at this time is large including globus sensation, vasovagal reaction, mass compressing on optic chiasm, goiter of thyroid, esophageal stricture, achalasia or anxiety produced vision changes. #Type 2 diabetes: Patient's last hemoglobin A1c in office was 7.6%, patient is to continue taking Zituvio 50 mg tablets as well as increase Ozempic 1mg. #Glaucoma: Patient states that he regularly follows with his diesel motor mechanic. #Nasal congestion: Patient states that he has been continuing to use Flonase, has tried mouth and nasal strips, has tried his CPAP nasal pillow. Has ENT appointment scheduled for August 2024 #Coughing fits: Patient saw online merchant, was placed on a new albuterol inhaler and does have a follow-up scheduled in 4 months. Reassuring that patient does have a ENT referral placed. #Low TSH: Last TSH conducted on July 03, 2023 revealed a value of 0.297. Repeat labs from February 2024 within normal limits.Obtaining repeat TSH, T3-T4 and thyroid ultrasound for further evaluation. All questions have been answered to patient's satisfaction. Patient verbalized understanding of diagnosis and treatments explained. Advised to call sooner prior to next visit it any questions/concerns arise. Case discussed with Alessandro HURTADO who reviewed the assessment and plan. Chart, medications, labs, vital signs reviewed. Dictation was accomplished with the use of [employer] voice recognition software, which is prone to medical misidentifications and grammatical errors. This are unintentional and the practitioner does try to identify and correct these, but some could still be present. Please do not hesitate to contact practitioner for clarification. 06/18/2024 Type 2 diabetes with complication (ICD-10 - E11.8) Jose is a 58-year-old male with a past medical history of hypothyroidism, type 2 diabetes, essential hypertension, hyperlipidemia, cataract extraction, glaucoma who presents today for a 6-week follow-up visit with no acute concerns today. #Intermittent blackout vision: At this time we will be conducting an extensive workup for this chief complaint. Patient states that this has been intermittently occurring for numerous years. Patient denies any chest pain, shortness of breath at this time. EKG in office does demonstrate, T wave abnormality, possible anterior lateral ischemia, after discussing with Dr. Jamil this is considered normal for this patient as he may have underlying heart disease.. Will be obtaining a barium swallow as the patient does have this chief complaint only upon swallowing, states that he intermittently feels a stuck sensation , consider ordering an endoscopy if barium swallow was negative. Additionally we will be ordering a thyroid ultrasound as the patient does have a history of hyperthyroidism to ensure there are no goiters, nodules compressing on the esophagus or airway potentially. Along with thyroid ultrasound, carotid artery ultrasound bilaterally will also be ordered to ensure there is no stenosis or occlusions at this time. Consider CT scan of the head with contrast if all scans are negative to ensure there are no compressing lesions on optic nerve causing the blurry sensation upon swallowing. Differential at this time is large including globus sensation, vasovagal reaction, mass compressing on optic chiasm, goiter of thyroid, esophageal stricture, achalasia or anxiety produced vision changes. #Type 2 diabetes: Patient's last hemoglobin A1c in office was 7.6%, patient is to continue taking Zituvio 50 mg tablets as well as increase Ozempic 1mg. #Glaucoma: Patient states that he regularly follows with his diesel motor mechanic. #Nasal congestion: Patient states that he has been continuing to use Flonase, has tried mouth and nasal strips, has tried his CPAP nasal pillow. Has ENT appointment scheduled for August 2024 #Coughing fits: Patient saw online merchant, was placed on a new albuterol inhaler and does have a follow-up scheduled in 4 months. Reassuring that patient does have a ENT referral placed. #Low TSH: Last TSH conducted on July 03, 2023 revealed a value of 0.297. Repeat labs from February 2024 within normal limits.Obtaining repeat TSH, T3-T4 and thyroid ultrasound for further evaluation. All questions have been answered to patient's satisfaction. Patient verbalized understanding of diagnosis and treatments explained. Advised to call sooner prior to next visit it any questions/concerns arise. Case discussed with Alessandro HURTADO who reviewed the assessment and plan. Chart, medications, labs, vital signs reviewed. Dictation was accomplished with the use of [employer] voice recognition software, which is prone to medical misidentifications and grammatical errors. This are unintentional and the practitioner does try to identify and correct these, but some could still be present. Please do not hesitate to contact practitioner for clarification. 06/18/2024 Controlled type 2 diabetes mellitus with hyperglycemia, without long-term current use of insulin (ICD-10 - E11.65) 10/27/2024 Controlled type 2 diabetes mellitus with hyperglycemia, without long-term current use of insulin (ICD-10 - E11.65) Jose is a 58-year-old male with a past medical history of hypothyroidism, type 2 diabetes, essential hypertension, hyperlipidemia, cataract extraction, glaucoma who presents today for a 6-week follow-up visit with no acute concerns today. #Palpitations/tachyc ardia: Currently on propranolol per cardiology #Nasal congestion/allergies : Continue following with online merchant, last appointment was on October 22, 2024 #Swallowing difficulties: Patient did have a barium swallow completed that demonstrated a hiatal hernia, he states he is to have an endoscopy scheduled for December. #Questioning propranolol: Patient is to discuss disc continuing propranolol with his metal miner, this appointment is coming up soon #ENT: Ear nose and throat surgeon of [facility] contacted our office on 09/15/2024 in regards to patient discontinuing propranolol for allergy testing, cardiology was contacted and deemed this to be appropriate #Atherosclerotic plaque: Incidentally found on ultrasound of carotid arteries, both the right and left carotid bulbs 07/18/24.. Continue atorvastatin calcium 20 mg tablets consider coronary calcium scan at follow-up appointment #Intermittent blackout vision: Patient did have an ultrasound completed in regards to the chief complaint of intermittent blackout and blurry vision that demonstrated elevated velocity within the left subclavian artery, this was reported on 07/18/2024. A vascular surgery referral was placed and patient did see vascular on 09/23/2024 where an arterial duplex bilateral scan was obtained.. Patient states that he is continuing to follow with vascular...Different ial at this time is large including globus sensation, vasovagal reaction, mass compressing on optic chiasm, goiter of thyroid, esophageal stricture, achalasia or anxiety produced vision changes. #Type 2 diabetes: Patient's last hemoglobin A1c in office was 7.6%, patient is to continue taking Zituvio 50 mg tablets as well as Ozempic 1mg...Will see if patient may be approved for Mounjaro, this may optimize A1c control. #Glaucoma: Patient states that he regularly follows with his diesel motor mechanic. #History of hyperthyroidism: TSH, T3-T4 pending. Thyroid ultrasound additionally was completed that demonstrated subcentimeter left lobe nodule, no follow-up recommended. Minimally prominent normal-appearing lymph nodes in the neck presumably reactive #Vitamin D deficiency: Sending patient 50,000 units to be taken once weekly for 8 weeks. All questions have been answered to patient's satisfaction. Patient verbalized understanding of diagnosis and treatments explained. Advised to call sooner prior to next visit it any questions/concerns arise. Case discussed with Alessandro HURTADO who reviewed the assessment and plan. Chart, medications, labs, vital signs reviewed. Dictation was accomplished with the use of [employer] voice recognition software, which is prone to medical misidentifications and grammatical errors. This are unintentional and the practitioner does try to identify and correct these, but some could still be present. Please do not hesitate to contact practitioner for clarification. 10/27/2024 Type 2 diabetes with complication (ICD-10 - E11.8) Jose is a 58-year-old male with a past medical history of hypothyroidism, type 2 diabetes, essential hypertension, hyperlipidemia, cataract extraction, glaucoma who presents today for a 6-week follow-up visit with no acute concerns today. #Palpitations/tachyc ardia: Currently on propranolol per cardiology #Nasal congestion/allergies : Continue following with online merchant, last appointment was on October 22, 2024 #Swallowing difficulties: Patient did have a barium swallow completed that demonstrated a hiatal hernia, he states he is to have an endoscopy scheduled for December. #Questioning propranolol: Patient is to discuss disc continuing propranolol with his metal miner, this appointment is coming up soon #ENT: Ear nose and throat surgeon of [facility] contacted our office on 09/15/2024 in regards to patient discontinuing propranolol for allergy testing, cardiology was contacted and deemed this to be appropriate #Atherosclerotic plaque: Incidentally found on ultrasound of carotid arteries, both the right and left carotid bulbs 07/18/24.. Continue atorvastatin calcium 20 mg tablets consider coronary calcium scan at follow-up appointment #Intermittent blackout vision: Patient did have an ultrasound completed in regards to the chief complaint of intermittent blackout and blurry vision that demonstrated elevated velocity within the left subclavian artery, this was reported on 07/18/2024. A vascular surgery referral was placed and patient did see vascular on 09/23/2024 where an arterial duplex bilateral scan was obtained.. Patient states that he is continuing to follow with vascular...Different ial at this time is large including globus sensation, vasovagal reaction, mass compressing on optic chiasm, goiter of thyroid, esophageal stricture, achalasia or anxiety produced vision changes. #Type 2 diabetes: Patient's last hemoglobin A1c in office was 7.6%, patient is to continue taking Zituvio 50 mg tablets as well as Ozempic 1mg...Will see if patient may be approved for Mounjaro, this may optimize A1c control. #Glaucoma: Patient states that he regularly follows with his diesel motor mechanic. #History of hyperthyroidism: TSH, T3-T4 pending. Thyroid ultrasound additionally was completed that demonstrated subcentimeter left lobe nodule, no follow-up recommended. Minimally prominent normal-appearing lymph nodes in the neck presumably reactive #Vitamin D deficiency: Sending patient 50,000 units to be taken once weekly for 8 weeks. All questions have been answered to patient's satisfaction. Patient verbalized understanding of diagnosis and treatments explained. Advised to call sooner prior to next visit it any questions/concerns arise. Case discussed with Alessandro HURTADO who reviewed the assessment and plan. Chart, medications, labs, vital signs reviewed. Dictation was accomplished with the use of [employer] voice recognition software, which is prone to medical misidentifications and grammatical errors. This are unintentional and the practitioner does try to identify and correct these, but some could still be present. Please do not hesitate to contact practitioner for clarification. 12/20/2023 Type 2 diabetes mellitus without complication, without long-term current use of insulin (ICD-10 - E11.9) #Uncontrolled DM II. A1C increased from 8.2 to 8.8. Compliant with Metformin to 1000mg in the morning and 500 at night; as well as Januvia. Given his A1C has increased without dietary change, we discussed adding Mounjaro. Patient will to try. We dsicussed side effects, administration and storage. #Acquired hypothyroidism: Recent labs show TSH of 0.297. Will follow up with T3 and T4 labs. The patient is open to starting levothyroxine after lab results have returned. # Nasal congestion. Using Flonase. Has CPAP nasal pillow- mouth breathing. Will refer to ENT Case discussed with collaborating physician Hayes Jamil who reviewed the assessment and plan. Chart, medications, labs, vital signs reviewed. Dictation was accomplished with the use of [employer] voice recognition software, prone to medical misidentifications and grammatical errors. This is unintentional and the practitioner does try to identify and correct these, but some could still be present. Please do not hesitate to contact practitioner for clarification. All questions answered to patients satisfaction. Patient verbalized understanding of diagnosis and treatments explained. To call sooner prior to next visit it any questions/concerns arise. 12/20/2023 Hyperglycemia due to diabetes mellitus (ICD-10 - E11.65) #Uncontrolled DM II. A1C increased from 8.2 to 8.8. Compliant with Metformin to 1000mg in the morning and 500 at night; as well as Januvia. Given his A1C has increased without dietary change, we discussed adding Mounjaro. Patient will to try. We dsicussed side effects, administration and storage. #Acquired hypothyroidism: Recent labs show TSH of 0.297. Will follow up with T3 and T4 labs. The patient is open to starting levothyroxine after lab results have returned. # Nasal congestion. Using Flonase. Has CPAP nasal pillow- mouth breathing. Will refer to ENT Case discussed with collaborating physician Hayes Jamil who reviewed the assessment and plan. Chart, medications, labs, vital signs reviewed. Dictation was accomplished with the use of [employer] voice recognition software, prone to medical misidentifications and grammatical errors. This is unintentional and the practitioner does try to identify and correct these, but some could still be present. Please do not hesitate to contact practitioner for clarification. All questions answered to patients satisfaction. Patient verbalized understanding of diagnosis and treatments explained. To call sooner prior to next visit it any questions/concerns arise. 12/20/2023 Dyslipidemia (ICD-10 - E78.5) #Uncontrolled DM II. A1C increased from 8.2 to 8.8. Compliant with Metformin to 1000mg in the morning and 500 at night; as well as Januvia. Given his A1C has increased without dietary change, we discussed adding Mounjaro. Patient will to try. We dsicussed side effects, administration and storage. #Acquired hypothyroidism: Recent labs show TSH of 0.297. Will follow up with T3 and T4 labs. The patient is open to starting levothyroxine after lab results have returned. # Nasal congestion. Using Flonase. Has CPAP nasal pillow- mouth breathing. Will refer to ENT Case discussed with collaborating physician Hayes Jamil who reviewed the assessment and plan. Chart, medications, labs, vital signs reviewed. Dictation was accomplished with the use of [employer] voice recognition software, prone to medical misidentifications and grammatical errors. This is unintentional and the practitioner does try to identify and correct these, but some could still be present. Please do not hesitate to contact practitioner for clarification. All questions answered to patients satisfaction. Patient verbalized understanding of diagnosis and treatments explained. To call sooner prior to next visit it any questions/concerns arise. 10/27/2024 Cataract extraction status, left eye (ICD-10 - Z98.42) Jose is a 58-year-old male with a past medical history of hypothyroidism, type 2 diabetes, essential hypertension, hyperlipidemia, cataract extraction, glaucoma who presents today for a 6-week follow-up visit with no acute concerns today. #Palpitations/tachyc ardia: Currently on propranolol per cardiology #Nasal congestion/allergies : Continue following with online merchant, last appointment was on October 22, 2024 #Swallowing difficulties: Patient did have a barium swallow completed that demonstrated a hiatal hernia, he states he is to have an endoscopy scheduled for December. #Questioning propranolol: Patient is to discuss disc continuing propranolol with his metal miner, this appointment is coming up soon #ENT: Ear nose and throat surgeon of [facility] contacted our office on 09/15/2024 in regards to patient discontinuing propranolol for allergy testing, cardiology was contacted and deemed this to be appropriate #Atherosclerotic plaque: Incidentally found on ultrasound of carotid arteries, both the right and left carotid bulbs 07/18/24.. Continue atorvastatin calcium 20 mg tablets consider coronary calcium scan at follow-up appointment #Intermittent blackout vision: Patient did have an ultrasound completed in regards to the chief complaint of intermittent blackout and blurry vision that demonstrated elevated velocity within the left subclavian artery, this was reported on 07/18/2024. A vascular surgery referral was placed and patient did see vascular on 09/23/2024 where an arterial duplex bilateral scan was obtained.. Patient states that he is continuing to follow with vascular...Different ial at this time is large including globus sensation, vasovagal reaction, mass compressing on optic chiasm, goiter of thyroid, esophageal stricture, achalasia or anxiety produced vision changes. #Type 2 diabetes: Patient's last hemoglobin A1c in office was 7.6%, patient is to continue taking Zituvio 50 mg tablets as well as Ozempic 1mg...Will see if patient may be approved for Mounjaro, this may optimize A1c control. #Glaucoma: Patient states that he regularly follows with his diesel motor mechanic. #History of hyperthyroidism: TSH, T3-T4 pending. Thyroid ultrasound additionally was completed that demonstrated subcentimeter left lobe nodule, no follow-up recommended. Minimally prominent normal-appearing lymph nodes in the neck presumably reactive #Vitamin D deficiency: Sending patient 50,000 units to be taken once weekly for 8 weeks. All questions have been answered to patient's satisfaction. Patient verbalized understanding of diagnosis and treatments explained. Advised to call sooner prior to next visit it any questions/concerns arise. Case discussed with Alessandro HURTADO who reviewed the assessment and plan. Chart, medications, labs, vital signs reviewed. Dictation was accomplished with the use of [employer] voice recognition software, which is prone to medical misidentifications and grammatical errors. This are unintentional and the practitioner does try to identify and correct these, but some could still be present. Please do not hesitate to contact practitioner for clarification. 06/18/2024 Cataract extraction status, left eye (ICD-10 - Z98.42) Jose is a 58-year-old male with a past medical history of hypothyroidism, type 2 diabetes, essential hypertension, hyperlipidemia, cataract extraction, glaucoma who presents today for a 6-week follow-up visit with no acute concerns today. #Intermittent blackout vision: At this time we will be conducting an extensive workup for this chief complaint. Patient states that this has been intermittently occurring for numerous years. Patient denies any chest pain, shortness of breath at this time. EKG in office does demonstrate, T wave abnormality, possible anterior lateral ischemia, after discussing with Dr. Jamil this is considered normal for this patient as he may have underlying heart disease.. Will be obtaining a barium swallow as the patient does have this chief complaint only upon swallowing, states that he intermittently feels a stuck sensation , consider ordering an endoscopy if barium swallow was negative. Additionally we will be ordering a thyroid ultrasound as the patient does have a history of hyperthyroidism to ensure there are no goiters, nodules compressing on the esophagus or airway potentially. Along with thyroid ultrasound, carotid artery ultrasound bilaterally will also be ordered to ensure there is no stenosis or occlusions at this time. Consider CT scan of the head with contrast if all scans are negative to ensure there are no compressing lesions on optic nerve causing the blurry sensation upon swallowing. Differential at this time is large including globus sensation, vasovagal reaction, mass compressing on optic chiasm, goiter of thyroid, esophageal stricture, achalasia or anxiety produced vision changes. #Type 2 diabetes: Patient's last hemoglobin A1c in office was 7.6%, patient is to continue taking Zituvio 50 mg tablets as well as increase Ozempic 1mg. #Glaucoma: Patient states that he regularly follows with his diesel motor mechanic. #Nasal congestion: Patient states that he has been continuing to use Flonase, has tried mouth and nasal strips, has tried his CPAP nasal pillow. Has ENT appointment scheduled for August 2024 #Coughing fits: Patient saw online merchant, was placed on a new albuterol inhaler and does have a follow-up scheduled in 4 months. Reassuring that patient does have a ENT referral placed. #Low TSH: Last TSH conducted on July 03, 2023 revealed a value of 0.297. Repeat labs from February 2024 within normal limits.Obtaining repeat TSH, T3-T4 and thyroid ultrasound for further evaluation. All questions have been answered to patient's satisfaction. Patient verbalized understanding of diagnosis and treatments explained. Advised to call sooner prior to next visit it any questions/concerns arise. Case discussed with Alessandro HURTADO who reviewed the assessment and plan. Chart, medications, labs, vital signs reviewed. Dictation was accomplished with the use of [employer] voice recognition software, which is prone to medical misidentifications and grammatical errors. This are unintentional and the practitioner does try to identify and correct these, but some could still be present. Please do not hesitate to contact practitioner for clarification. 05/29/2024 Type 2 diabetes with complication (ICD-10 - E11.8) Jose is a 58-year-old male with a past medical history of hypothyroidism, type 2 diabetes, essential hypertension, hyperlipidemia, and glaucoma who presents to the office today for a preoperative visit. #Type 2 diabetes: Patient's Hemoglobin A1c in office today 7.9%, this is an improvement from the previous value of 8.8%. patient is to continue taking Zituvio 50 mg tablets as well as increase to Ozempic 1.0 mg. #Glaucoma: Surgery scheduled for June 23 and July 08. At this time patient is cleared for surgery we will fax office note over so the surgeon is aware of patient's A1c at this time #Nasal congestion: Patient states that he has been continuing to use Flonase, has tried mouth and nasal strips, has tried his CPAP nasal pillow. Has ENT appointment scheduled for August 2024. Consider Singulair at follow-up #Coughing fits: No improvement with antihistamine such as allograft, Zyrtec or Claritin. Additionally patient educated to utilize a humidifier in his home to ensure the areas moisturized as this may be contributing towards his coughing and sneezing. Reassuring that patient does have a ENT referral placed. #Low TSH: Last TSH conducted on July 03, 2023 revealed a value of 0.297. Repeat labs from February 2024 within normal limits. All questions have been answered to patient's satisfaction. Patient verbalized understanding of diagnosis and treatments explained. Advised to call sooner prior to next visit it any questions/concerns arise. Case discussed with Alessandro HURTADO who reviewed the assessment and plan. Chart, medications, labs, vital signs reviewed. Dictation was accomplished with the use of [employer] voice recognition software, which is prone to medical misidentifications and grammatical errors. This are unintentional and the practitioner does try to identify and correct these, but some could still be present. Please do not hesitate to contact practitioner for clarification. 03/13/2024 Type 2 diabetes with complication (ICD-10 - E11.8) Jose is a 58-year-old male with a past medical history of hypothyroidism, type 2 diabetes, essential hypertension, hyperlipidemia, cataract extraction, glaucoma who presents today for a 6-week follow-up visit with no acute concerns today. #Type 2 diabetes: Patient's last hemoglobin A1c in office was 8.8%, patient is to continue taking Zituvio 50 mg tablets as well as increase Ozempic 0.5mg. #Glaucoma: Patient states that he regularly follows with his diesel motor mechanic.Stat es he is being seen in April for a potential surgery consultation #Nasal congestion: Patient states that he has been continuing to use Flonase, has tried mouth and nasal strips, has tried his CPAP nasal pillow. Has ENT appointment scheduled for August 2024 #Coughing fits: Patient encouraged to trial a alternative antihistamine such as Ngoc, Zyrtec or Claritin as his body may have developed a tolerance to Flonase oral medication. Additionally patient educated to utilize a humidifier in his home to ensure the areas moisturized as this may be contributing towards his coughing and sneezing. Reassuring that patient does have a ENT referral placed. #Low TSH: Last TSH conducted on July 03, 2023 revealed a value of 0.297. Repeat labs from February 2024 within normal limits. All questions have been answered to patient's satisfaction. Patient verbalized understanding of diagnosis and treatments explained. Advised to call sooner prior to next visit it any questions/concerns arise. Case discussed with Alessandro HURTADO who reviewed the assessment and plan. Chart, medications, labs, vital signs reviewed. Dictation was accomplished with the use of [employer] voice recognition software, which is prone to medical misidentifications and grammatical errors. This are unintentional and the practitioner does try to identify and correct these, but some could still be present. Please do not hesitate to contact practitioner for clarification. 01/31/2024 Obesity, unspecified (ICD-10 - E66.9) Jose is a 58-year-old male with a past medical history of hypothyroidism, type 2 diabetes, essential hypertension, hyperlipidemia, cataract extraction, glaucoma who presents today for a 6-week follow-up visit with no acute concerns today. #Type 2 diabetes: Patient's last hemoglobin A1c in office was 8.8%, today's hemoglobin A1c is 8.7%. Patient is to continue taking Zituvio 50 mg tablets as well as Ozempic once weekly. Ozempic sample pen given in office today, patient shown how to properly inject himself, was given alcohol wipes and was injected today.We will recheck the patient's hemoglobin A1c at his follow-up appointment #Glaucoma: Patient states that he regularly follows with his diesel motor mechanic. #Nasal congestion: Patient states that he has been continuing to use Flonase, has tried mouth and nasal strips, has tried his CPAP nasal pillow however still continues to mouth breathe therefore ENT referral will be placed today. #Low TSH: Last TSH conducted on July 03, 2023 revealed a value of 0.297, patient did not obtain a T3 and T4, order placed for a repeat TSH, T3-T4 to further evaluate his thyroid function. All questions have been answered to patient's satisfaction. Patient verbalized understanding of diagnosis and treatments explained. Advised to call sooner prior to next visit it any questions/concerns arise. Case discussed with Alessandro HURTADO who reviewed the assessment and plan. Chart, medications, labs, vital signs reviewed. Dictation was accomplished with the use of [employer] voice recognition software, which is prone to medical misidentifications and grammatical errors. This are unintentional and the practitioner does try to identify and correct these, but some could still be present. Please do not hesitate to contact practitioner for clarification. 05/29/2024 Cataract extraction status, left eye (ICD-10 - Z98.42) Jose is a 58-year-old male with a past medical history of hypothyroidism, type 2 diabetes, essential hypertension, hyperlipidemia, and glaucoma who presents to the office today for a preoperative visit. #Type 2 diabetes: Patient's Hemoglobin A1c in office today 7.9%, this is an improvement from the previous value of 8.8%. patient is to continue taking Zituvio 50 mg tablets as well as increase to Ozempic 1.0 mg. #Glaucoma: Surgery scheduled for June 23 and July 08. At this time patient is cleared for surgery we will fax office note over so the surgeon is aware of patient's A1c at this time #Nasal congestion: Patient states that he has been continuing to use Flonase, has tried mouth and nasal strips, has tried his CPAP nasal pillow. Has ENT appointment scheduled for August 2024. Consider Singulair at follow-up #Coughing fits: No improvement with antihistamine such as allograft, Zyrtec or Claritin. Additionally patient educated to utilize a humidifier in his home to ensure the areas moisturized as this may be contributing towards his coughing and sneezing. Reassuring that patient does have a ENT referral placed. #Low TSH: Last TSH conducted on July 03, 2023 revealed a value of 0.297. Repeat labs from February 2024 within normal limits. All questions have been answered to patient's satisfaction. Patient verbalized understanding of diagnosis and treatments explained. Advised to call sooner prior to next visit it any questions/concerns arise. Case discussed with Alessandro HURTADO who reviewed the assessment and plan. Chart, medications, labs, vital signs reviewed. Dictation was accomplished with the use of [employer] voice recognition software, which is prone to medical misidentifications and grammatical errors. This are unintentional and the practitioner does try to identify and correct these, but some could still be present. Please do not hesitate to contact practitioner for clarification. 03/13/2024 Cataract extraction status, left eye (ICD-10 - Z98.42) Jose is a 58-year-old male with a past medical history of hypothyroidism, type 2 diabetes, essential hypertension, hyperlipidemia, cataract extraction, glaucoma who presents today for a 6-week follow-up visit with no acute concerns today. #Type 2 diabetes: Patient's last hemoglobin A1c in office was 8.8%, patient is to continue taking Zituvio 50 mg tablets as well as increase Ozempic 0.5mg. #Glaucoma: Patient states that he regularly follows with his diesel motor mechanic.Stat es he is being seen in April for a potential surgery consultation #Nasal congestion: Patient states that he has been continuing to use Flonase, has tried mouth and nasal strips, has tried his CPAP nasal pillow. Has ENT appointment scheduled for August 2024 #Coughing fits: Patient encouraged to trial a alternative antihistamine such as Ngoc, Zyrtec or Claritin as his body may have developed a tolerance to Flonase oral medication. Additionally patient educated to utilize a humidifier in his home to ensure the areas moisturized as this may be contributing towards his coughing and sneezing. Reassuring that patient does have a ENT referral placed. #Low TSH: Last TSH conducted on July 03, 2023 revealed a value of 0.297. Repeat labs from February 2024 within normal limits. All questions have been answered to patient's satisfaction. Patient verbalized understanding of diagnosis and treatments explained. Advised to call sooner prior to next visit it any questions/concerns arise. Case discussed with Alessandro HURTADO who reviewed the assessment and plan. Chart, medications, labs, vital signs reviewed. Dictation was accomplished with the use of [employer] recognition software, which is prone to medical misidentifications and grammatical errors. This are unintentional and the practitioner does try to identify and correct these, but some could still be present. Please do not hesitate to contact practitioner for clarification. 06/18/2024 Obesity, unspecified (ICD-10 - E66.9) Jose is a 58-year-old male with a past medical history of hypothyroidism, type 2 diabetes, essential hypertension, hyperlipidemia, cataract extraction, glaucoma who presents today for a 6-week follow-up visit with no acute concerns today. #Intermittent blackout vision: At this time we will be conducting an extensive workup for this chief complaint. Patient states that this has been intermittently occurring for numerous years. Patient denies any chest pain, shortness of breath at this time. EKG in office does demonstrate, T wave abnormality, possible anterior lateral ischemia, after discussing with Dr. Jamil this is considered normal for this patient as he may have underlying heart disease.. Will be obtaining a barium swallow as the patient does have this chief complaint only upon swallowing, states that he intermittently feels a stuck sensation , consider ordering an endoscopy if barium swallow was negative. Additionally we will be ordering a thyroid ultrasound as the patient does have a history of hyperthyroidism to ensure there are no goiters, nodules compressing on the esophagus or airway potentially. Along with thyroid ultrasound, carotid artery ultrasound bilaterally will also be ordered to ensure there is no stenosis or occlusions at this time. Consider CT scan of the head with contrast if all scans are negative to ensure there are no compressing lesions on optic nerve causing the blurry sensation upon swallowing. Differential at this time is large including globus sensation, vasovagal reaction, mass compressing on optic chiasm, goiter of thyroid, esophageal stricture, achalasia or anxiety produced vision changes. #Type 2 diabetes: Patient's last hemoglobin A1c in office was 7.6%, patient is to continue taking Zituvio 50 mg tablets as well as increase Ozempic 1mg. #Glaucoma: Patient states that he regularly follows with his diesel motor mechanic. #Nasal congestion: Patient states that he has been continuing to use Flonase, has tried mouth and nasal strips, has tried his CPAP nasal pillow. Has ENT appointment scheduled for August 2024 #Coughing fits: Patient saw online merchant, was placed on a new albuterol inhaler and does have a follow-up scheduled in 4 months. Reassuring that patient does have a ENT referral placed. #Low TSH: Last TSH conducted on July 03, 2023 revealed a value of 0.297. Repeat labs from February 2024 within normal limits.Obtaining repeat TSH, T3-T4 and thyroid ultrasound for further evaluation. All questions have been answered to patient's satisfaction. Patient verbalized understanding of diagnosis and treatments explained. Advised to call sooner prior to next visit it any questions/concerns arise. Case discussed with Alessandro HURTADO who reviewed the assessment and plan. Chart, medications, labs, vital signs reviewed. Dictation was accomplished with the use of [employer] voice recognition software, which is prone to medical misidentifications and grammatical errors. This are unintentional and the practitioner does try to identify and correct these, but some could still be present. Please do not hesitate to contact practitioner for clarification. 10/27/2024 Obesity, unspecified (ICD-10 - E66.9) Jose is a 58-year-old male with a past medical history of hypothyroidism, type 2 diabetes, essential hypertension, hyperlipidemia, cataract extraction, glaucoma who presents today for a 6-week follow-up visit with no acute concerns today. #Palpitations/tachyc ardia: Currently on propranolol per cardiology #Nasal congestion/allergies : Continue following with online merchant, last appointment was on October 22, 2024 #Swallowing difficulties: Patient did have a barium swallow completed that demonstrated a hiatal hernia, he states he is to have an endoscopy scheduled for December. #Questioning propranolol: Patient is to discuss disc continuing propranolol with his metal miner, this appointment is coming up soon #ENT: Ear nose and throat surgeon of [facility] contacted our office on 09/15/2024 in regards to patient discontinuing propranolol for allergy testing, cardiology was contacted and deemed this to be appropriate #Atherosclerotic plaque: Incidentally found on ultrasound of carotid arteries, both the right and left carotid bulbs 07/18/24.. Continue atorvastatin calcium 20 mg tablets consider coronary calcium scan at follow-up appointment #Intermittent blackout vision: Patient did have an ultrasound completed in regards to the chief complaint of intermittent blackout and blurry vision that demonstrated elevated velocity within the left subclavian artery, this was reported on 07/18/2024. A vascular surgery referral was placed and patient did see vascular on 09/23/2024 where an arterial duplex bilateral scan was obtained.. Patient states that he is continuing to follow with vascular...Different ial at this time is large including globus sensation, vasovagal reaction, mass compressing on optic chiasm, goiter of thyroid, esophageal stricture, achalasia or anxiety produced vision changes. #Type 2 diabetes: Patient's last hemoglobin A1c in office was 7.6%, patient is to continue taking Zituvio 50 mg tablets as well as Ozempic 1mg...Will see if patient may be approved for Mounjaro, this may optimize A1c control. #Glaucoma: Patient states that he regularly follows with his diesel motor mechanic. #History of hyperthyroidism: TSH, T3-T4 pending. Thyroid ultrasound additionally was completed that demonstrated subcentimeter left lobe nodule, no follow-up recommended. Minimally prominent normal-appearing lymph nodes in the neck presumably reactive #Vitamin D deficiency: Sending patient 50,000 units to be taken once weekly for 8 weeks. All questions have been answered to patient's satisfaction. Patient verbalized understanding of diagnosis and treatments explained. Advised to call sooner prior to next visit it any questions/concerns arise. Case discussed with Alessandro HURTADO who reviewed the assessment and plan. Chart, medications, labs, vital signs reviewed. Dictation was accomplished with the use of [employer] voice recognition software, which is prone to medical misidentifications and grammatical errors. This are unintentional and the practitioner does try to identify and correct these, but some could still be present. Please do not hesitate to contact practitioner for clarification. 12/20/2023 Hypothyroidism (acquired) (ICD-10 - E03.9) #Uncontrolled DM II. A1C increased from 8.2 to 8.8. Compliant with Metformin to 1000mg in the morning and 500 at night; as well as Januvia. Given his A1C has increased without dietary change, we discussed adding Mounjaro. Patient will to try. We dsicussed side effects, administration and storage. #Acquired hypothyroidism: Recent labs show TSH of 0.297. Will follow up with T3 and T4 labs. The patient is open to starting levothyroxine after lab results have returned. # Nasal congestion. Using Flonase. Has CPAP nasal pillow- mouth breathing. Will refer to ENT Case discussed with collaborating physician Hayes Jamil who reviewed the assessment and plan. Chart, medications, labs, vital signs reviewed. Dictation was accomplished with the use of [employer] voice recognition software, prone to medical misidentifications and grammatical errors. This is unintentional and the practitioner does try to identify and correct these, but some could still be present. Please do not hesitate to contact practitioner for clarification. All questions answered to patients satisfaction. Patient verbalized understanding of diagnosis and treatments explained. To call sooner prior to next visit it any questions/concerns arise. 01/31/2024 Hyperthyroidism (ICD-10 - E05.90) Jose is a 58-year-old male with a past medical history of hypothyroidism, type 2 diabetes, essential hypertension, hyperlipidemia, cataract extraction, glaucoma who presents today for a 6-week follow-up visit with no acute concerns today. #Type 2 diabetes: Patient's last hemoglobin A1c in office was 8.8%, today's hemoglobin A1c is 8.7%. Patient is to continue taking Zituvio 50 mg tablets as well as Ozempic once weekly. Ozempic sample pen given in office today, patient shown how to properly inject himself, was given alcohol wipes and was injected today.We will recheck the patient's hemoglobin A1c at his follow-up appointment #Glaucoma: Patient states that he regularly follows with his diesel motor mechanic. #Nasal congestion: Patient states that he has been continuing to use Flonase, has tried mouth and nasal strips, has tried his CPAP nasal pillow however still continues to mouth breathe therefore ENT referral will be placed today. #Low TSH: Last TSH conducted on July 03, 2023 revealed a value of 0.297, patient did not obtain a T3 and T4, order placed for a repeat TSH, T3-T4 to further evaluate his thyroid function. All questions have been answered to patient's satisfaction. Patient verbalized understanding of diagnosis and treatments explained. Advised to call sooner prior to next visit it any questions/concerns arise. Case discussed with Alessandro HURTADO who reviewed the assessment and plan. Chart, medications, labs, vital signs reviewed. Dictation was accomplished with the use of [employer] voice recognition software, which is prone to medical misidentifications and grammatical errors. This are unintentional and the practitioner does try to identify and correct these, but some could still be present. Please do not hesitate to contact practitioner for clarification. 10/27/2024 Hyperthyroidism (ICD-10 - E05.90) Jsoe is a 58-year-old male with a past medical history of hypothyroidism, type 2 diabetes, essential hypertension, hyperlipidemia, cataract extraction, glaucoma who presents today for a 6-week follow-up visit with no acute concerns today. #Palpitations/tachyc ardia: Currently on propranolol per cardiology #Nasal congestion/allergies : Continue following with online merchant, last appointment was on October 22, 2024 #Swallowing difficulties: Patient did have a barium swallow completed that demonstrated a hiatal hernia, he states he is to have an endoscopy scheduled for December. #Questioning propranolol: Patient is to discuss disc continuing propranolol with his metal miner, this appointment is coming up soon #ENT: Ear nose and throat surgeon of [facility] contacted our office on 09/15/2024 in regards to patient discontinuing propranolol for allergy testing, cardiology was contacted and deemed this to be appropriate #Atherosclerotic plaque: Incidentally found on ultrasound of carotid arteries, both the right and left carotid bulbs 07/18/24.. Continue atorvastatin calcium 20 mg tablets consider coronary calcium scan at follow-up appointment #Intermittent blackout vision: Patient did have an ultrasound completed in regards to the chief complaint of intermittent blackout and blurry vision that demonstrated elevated velocity within the left subclavian artery, this was reported on 07/18/2024. A vascular surgery referral was placed and patient did see vascular on 09/23/2024 where an arterial duplex bilateral scan was obtained.. Patient states that he is continuing to follow with vascular...Different ial at this time is large including globus sensation, vasovagal reaction, mass compressing on optic chiasm, goiter of thyroid, esophageal stricture, achalasia or anxiety produced vision changes. #Type 2 diabetes: Patient's last hemoglobin A1c in office was 7.6%, patient is to continue taking Zituvio 50 mg tablets as well as Ozempic 1mg...Will see if patient may be approved for Mounjaro, this may optimize A1c control. #Glaucoma: Patient states that he regularly follows with his diesel motor mechanic. #History of hyperthyroidism: TSH, T3-T4 pending. Thyroid ultrasound additionally was completed that demonstrated subcentimeter left lobe nodule, no follow-up recommended. Minimally prominent normal-appearing lymph nodes in the neck presumably reactive #Vitamin D deficiency: Sending patient 50,000 units to be taken once weekly for 8 weeks. All questions have been answered to patient's satisfaction. Patient verbalized understanding of diagnosis and treatments explained. Advised to call sooner prior to next visit it any questions/concerns arise. Case discussed with Alessandro HURTADO who reviewed the assessment and plan. Chart, medications, labs, vital signs reviewed. Dictation was accomplished with the use of [employer] voice recognition software, which is prone to medical misidentifications and grammatical errors. This are unintentional and the practitioner does try to identify and correct these, but some could still be present. Please do not hesitate to contact practitioner for clarification. 06/18/2024 Hyperthyroidism (ICD-10 - E05.90) Jose is a 58-year-old male with a past medical history of hypothyroidism, type 2 diabetes, essential hypertension, hyperlipidemia, cataract extraction, glaucoma who presents today for a 6-week follow-up visit with no acute concerns today. #Intermittent blackout vision: At this time we will be conducting an extensive workup for this chief complaint. Patient states that this has been intermittently occurring for numerous years. Patient denies any chest pain, shortness of breath at this time. EKG in office does demonstrate, T wave abnormality, possible anterior lateral ischemia, after discussing with Dr. Jamil this is considered normal for this patient as he may have underlying heart disease.. Will be obtaining a barium swallow as the patient does have this chief complaint only upon swallowing, states that he intermittently feels a stuck sensation , consider ordering an endoscopy if barium swallow was negative. Additionally we will be ordering a thyroid ultrasound as the patient does have a history of hyperthyroidism to ensure there are no goiters, nodules compressing on the esophagus or airway potentially. Along with thyroid ultrasound, carotid artery ultrasound bilaterally will also be ordered to ensure there is no stenosis or occlusions at this time. Consider CT scan of the head with contrast if all scans are negative to ensure there are no compressing lesions on optic nerve causing the blurry sensation upon swallowing. Differential at this time is large including globus sensation, vasovagal reaction, mass compressing on optic chiasm, goiter of thyroid, esophageal stricture, achalasia or anxiety produced vision changes. #Type 2 diabetes: Patient's last hemoglobin A1c in office was 7.6%, patient is to continue taking Zituvio 50 mg tablets as well as increase Ozempic 1mg. #Glaucoma: Patient states that he regularly follows with his diesel motor mechanic. #Nasal congestion: Patient states that he has been continuing to use Flonase, has tried mouth and nasal strips, has tried his CPAP nasal pillow. Has ENT appointment scheduled for August 2024 #Coughing fits: Patient saw online merchant, was placed on a new albuterol inhaler and does have a follow-up scheduled in 4 months. Reassuring that patient does have a ENT referral placed. #Low TSH: Last TSH conducted on July 03, 2023 revealed a value of 0.297. Repeat labs from February 2024 within normal limits.Obtaining repeat TSH, T3-T4 and thyroid ultrasound for further evaluation. All questions have been answered to patient's satisfaction. Patient verbalized understanding of diagnosis and treatments explained. Advised to call sooner prior to next visit it any questions/concerns arise. Case discussed with Alessandro HURTADO who reviewed the assessment and plan. Chart, medications, labs, vital signs reviewed. Dictation was accomplished with the use of [employer] voice recognition software, which is prone to medical misidentifications and grammatical errors. This are unintentional and the practitioner does try to identify and correct these, but some could still be present. Please do not hesitate to contact practitioner for clarification. 03/13/2024 Obesity, unspecified (ICD-10 - E66.9) Jose is a 58-year-old male with a past medical history of hypothyroidism, type 2 diabetes, essential hypertension, hyperlipidemia, cataract extraction, glaucoma who presents today for a 6-week follow-up visit with no acute concerns today. #Type 2 diabetes: Patient's last hemoglobin A1c in office was 8.8%, patient is to continue taking Zituvio 50 mg tablets as well as increase Ozempic 0.5mg. #Glaucoma: Patient states that he regularly follows with his diesel motor mechanic.Stat es he is being seen in April for a potential surgery consultation #Nasal congestion: Patient states that he has been continuing to use Flonase, has tried mouth and nasal strips, has tried his CPAP nasal pillow. Has ENT appointment scheduled for August 2024 #Coughing fits: Patient encouraged to trial a alternative antihistamine such as Ngoc, Zyrtec or Claritin as his body may have developed a tolerance to Flonase oral medication. Additionally patient educated to utilize a humidifier in his home to ensure the areas moisturized as this may be contributing towards his coughing and sneezing. Reassuring that patient does have a ENT referral placed. #Low TSH: Last TSH conducted on July 03, 2023 revealed a value of 0.297. Repeat labs from February 2024 within normal limits. All questions have been answered to patient's satisfaction. Patient verbalized understanding of diagnosis and treatments explained. Advised to call sooner prior to next visit it any questions/concerns arise. Case discussed with Alessandro HURTADO who reviewed the assessment and plan. Chart, medications, labs, vital signs reviewed. Dictation was accomplished with the use of [employer] voice recognition software, which is prone to medical misidentifications and grammatical errors. This are unintentional and the practitioner does try to identify and correct these, but some could still be present. Please do not hesitate to contact practitioner for clarification. 05/29/2024 Obesity, unspecified (ICD-10 - E66.9) Jose is a 58-year-old male with a past medical history of hypothyroidism, type 2 diabetes, essential hypertension, hyperlipidemia, and glaucoma who presents to the office today for a preoperative visit. #Type 2 diabetes: Patient's Hemoglobin A1c in office today 7.9%, this is an improvement from the previous value of 8.8%. patient is to continue taking Zituvio 50 mg tablets as well as increase to Ozempic 1.0 mg. #Glaucoma: Surgery scheduled for June 23 and July 08. At this time patient is cleared for surgery we will fax office note over so the surgeon is aware of patient's A1c at this time #Nasal congestion: Patient states that he has been continuing to use Flonase, has tried mouth and nasal strips, has tried his CPAP nasal pillow. Has ENT appointment scheduled for August 2024. Consider Singulair at follow-up #Coughing fits: No improvement with antihistamine such as allograft, Zyrtec or Claritin. Additionally patient educated to utilize a humidifier in his home to ensure the areas moisturized as this may be contributing towards his coughing and sneezing. Reassuring that patient does have a ENT referral placed. #Low TSH: Last TSH conducted on July 03, 2023 revealed a value of 0.297. Repeat labs from February 2024 within normal limits. All questions have been answered to patient's satisfaction. Patient verbalized understanding of diagnosis and treatments explained. Advised to call sooner prior to next visit it any questions/concerns arise. Case discussed with Alessandro HURTADO who reviewed the assessment and plan. Chart, medications, labs, vital signs reviewed. Dictation was accomplished with the use of [employer] voice recognition software, which is prone to medical misidentifications and grammatical errors. This are unintentional and the practitioner does try to identify and correct these, but some could still be present. Please do not hesitate to contact practitioner for clarification. 01/31/2024 Mouth breathing (ICD-10 - R06.5) Jose is a 58-year-old male with a past medical history of hypothyroidism, type 2 diabetes, essential hypertension, hyperlipidemia, cataract extraction, glaucoma who presents today for a 6-week follow-up visit with no acute concerns today. #Type 2 diabetes: Patient's last hemoglobin A1c in office was 8.8%, today's hemoglobin A1c is 8.7%. Patient is to continue taking Zituvio 50 mg tablets as well as Ozempic once weekly. Ozempic sample pen given in office today, patient shown how to properly inject himself, was given alcohol wipes and was injected today.We will recheck the patient's hemoglobin A1c at his follow-up appointment #Glaucoma: Patient states that he regularly follows with his diesel motor mechanic. #Nasal congestion: Patient states that he has been continuing to use Flonase, has tried mouth and nasal strips, has tried his CPAP nasal pillow however still continues to mouth breathe therefore ENT referral will be placed today. #Low TSH: Last TSH conducted on July 03, 2023 revealed a value of 0.297, patient did not obtain a T3 and T4, order placed for a repeat TSH, T3-T4 to further evaluate his thyroid function. All questions have been answered to patient's satisfaction. Patient verbalized understanding of diagnosis and treatments explained. Advised to call sooner prior to next visit it any questions/concerns arise. Case discussed with Alessandro HURTADO who reviewed the assessment and plan. Chart, medications, labs, vital signs reviewed. Dictation was accomplished with the use of [employer] recognition software, which is prone to medical misidentifications and grammatical errors. This are unintentional and the practitioner does try to identify and correct these, but some could still be present. Please do not hesitate to contact practitioner for clarification. 03/13/2024 Hyperthyroidism (ICD-10 - E05.90) Jose is a 58-year-old male with a past medical history of hypothyroidism, type 2 diabetes, essential hypertension, hyperlipidemia, cataract extraction, glaucoma who presents today for a 6-week follow-up visit with no acute concerns today. #Type 2 diabetes: Patient's last hemoglobin A1c in office was 8.8%, patient is to continue taking Zituvio 50 mg tablets as well as increase Ozempic 0.5mg. #Glaucoma: Patient states that he regularly follows with his diesel motor mechanic.Stat es he is being seen in April for a potential surgery consultation #Nasal congestion: Patient states that he has been continuing to use Flonase, has tried mouth and nasal strips, has tried his CPAP nasal pillow. Has ENT appointment scheduled for August 2024 #Coughing fits: Patient encouraged to trial a alternative antihistamine such as Ngoc, Zyrtec or Claritin as his body may have developed a tolerance to Flonase oral medication. Additionally patient educated to utilize a humidifier in his home to ensure the areas moisturized as this may be contributing towards his coughing and sneezing. Reassuring that patient does have a ENT referral placed. #Low TSH: Last TSH conducted on July 03, 2023 revealed a value of 0.297. Repeat labs from February 2024 within normal limits. All questions have been answered to patient's satisfaction. Patient verbalized understanding of diagnosis and treatments explained. Advised to call sooner prior to next visit it any questions/concerns arise. Case discussed with Alessandro HURTADO who reviewed the assessment and plan. Chart, medications, labs, vital signs reviewed. Dictation was accomplished with the use of [employer] voice recognition software, which is prone to medical misidentifications and grammatical errors. This are unintentional and the practitioner does try to identify and correct these, but some could still be present. Please do not hesitate to contact practitioner for clarification. 05/29/2024 Hyperthyroidism (ICD-10 - E05.90) Jose is a 58-year-old male with a past medical history of hypothyroidism, type 2 diabetes, essential hypertension, hyperlipidemia, and glaucoma who presents to the office today for a preoperative visit. #Type 2 diabetes: Patient's Hemoglobin A1c in office today 7.9%, this is an improvement from the previous value of 8.8%. patient is to continue taking Zituvio 50 mg tablets as well as increase to Ozempic 1.0 mg. #Glaucoma: Surgery scheduled for June 23 and July 08. At this time patient is cleared for surgery we will fax office note over so the surgeon is aware of patient's A1c at this time #Nasal congestion: Patient states that he has been continuing to use Flonase, has tried mouth and nasal strips, has tried his CPAP nasal pillow. Has ENT appointment scheduled for August 2024. Consider Singulair at follow-up #Coughing fits: No improvement with antihistamine such as allograft, Zyrtec or Claritin. Additionally patient educated to utilize a humidifier in his home to ensure the areas moisturized as this may be contributing towards his coughing and sneezing. Reassuring that patient does have a ENT referral placed. #Low TSH: Last TSH conducted on July 03, 2023 revealed a value of 0.297. Repeat labs from February 2024 within normal limits. All questions have been answered to patient's satisfaction. Patient verbalized understanding of diagnosis and treatments explained. Advised to call sooner prior to next visit it any questions/concerns arise. Case discussed with Alessandro HURTADO who reviewed the assessment and plan. Chart, medications, labs, vital signs reviewed. Dictation was accomplished with the use of [employer] voice recognition software, which is prone to medical misidentifications and grammatical errors. This are unintentional and the practitioner does try to identify and correct these, but some could still be present. Please do not hesitate to contact practitioner for clarification. 01/31/2024 CRISELDA (obstructive sleep apnea) (ICD-10 - G47.33) Jose is a 58-year-old male with a past medical history of hypothyroidism, type 2 diabetes, essential hypertension, hyperlipidemia, cataract extraction, glaucoma who presents today for a 6-week follow-up visit with no acute concerns today. #Type 2 diabetes: Patient's last hemoglobin A1c in office was 8.8%, today's hemoglobin A1c is 8.7%. Patient is to continue taking Zituvio 50 mg tablets as well as Ozempic once weekly. Ozempic sample pen given in office today, patient shown how to properly inject himself, was given alcohol wipes and was injected today.We will recheck the patient's hemoglobin A1c at his follow-up appointment #Glaucoma: Patient states that he regularly follows with his diesel motor mechanic. #Nasal congestion: Patient states that he has been continuing to use Flonase, has tried mouth and nasal strips, has tried his CPAP nasal pillow however still continues to mouth breathe therefore ENT referral will be placed today. #Low TSH: Last TSH conducted on July 03, 2023 revealed a value of 0.297, patient did not obtain a T3 and T4, order placed for a repeat TSH, T3-T4 to further evaluate his thyroid function. All questions have been answered to patient's satisfaction. Patient verbalized understanding of diagnosis and treatments explained. Advised to call sooner prior to next visit it any questions/concerns arise. Case discussed with Alessandro HURTADO who reviewed the assessment and plan. Chart, medications, labs, vital signs reviewed. Dictation was accomplished with the use of [employer] voice recognition software, which is prone to medical misidentifications and grammatical errors. This are unintentional and the practitioner does try to identify and correct these, but some could still be present. Please do not hesitate to contact practitioner for clarification. 06/18/2024 Mouth breathing (ICD-10 - R06.5) Jose is a 58-year-old male with a past medical history of hypothyroidism, type 2 diabetes, essential hypertension, hyperlipidemia, cataract extraction, glaucoma who presents today for a 6-week follow-up visit with no acute concerns today. #Intermittent blackout vision: At this time we will be conducting an extensive workup for this chief complaint. Patient states that this has been intermittently occurring for numerous years. Patient denies any chest pain, shortness of breath at this time. EKG in office does demonstrate, T wave abnormality, possible anterior lateral ischemia, after discussing with Dr. Jamil this is considered normal for this patient as he may have underlying heart disease.. Will be obtaining a barium swallow as the patient does have this chief complaint only upon swallowing, states that he intermittently feels a stuck sensation , consider ordering an endoscopy if barium swallow was negative. Additionally we will be ordering a thyroid ultrasound as the patient does have a history of hyperthyroidism to ensure there are no goiters, nodules compressing on the esophagus or airway potentially. Along with thyroid ultrasound, carotid artery ultrasound bilaterally will also be ordered to ensure there is no stenosis or occlusions at this time. Consider CT scan of the head with contrast if all scans are negative to ensure there are no compressing lesions on optic nerve causing the blurry sensation upon swallowing. Differential at this time is large including globus sensation, vasovagal reaction, mass compressing on optic chiasm, goiter of thyroid, esophageal stricture, achalasia or anxiety produced vision changes. #Type 2 diabetes: Patient's last hemoglobin A1c in office was 7.6%, patient is to continue taking Zituvio 50 mg tablets as well as increase Ozempic 1mg. #Glaucoma: Patient states that he regularly follows with his diesel motor mechanic. #Nasal congestion: Patient states that he has been continuing to use Flonase, has tried mouth and nasal strips, has tried his CPAP nasal pillow. Has ENT appointment scheduled for August 2024 #Coughing fits: Patient saw online merchant, was placed on a new albuterol inhaler and does have a follow-up scheduled in 4 months. Reassuring that patient does have a ENT referral placed. #Low TSH: Last TSH conducted on July 03, 2023 revealed a value of 0.297. Repeat labs from February 2024 within normal limits.Obtaining repeat TSH, T3-T4 and thyroid ultrasound for further evaluation. All questions have been answered to patient's satisfaction. Patient verbalized understanding of diagnosis and treatments explained. Advised to call sooner prior to next visit it any questions/concerns arise. Case discussed with Alessandro HURTADO who reviewed the assessment and plan. Chart, medications, labs, vital signs reviewed. Dictation was accomplished with the use of [employer] voice recognition software, which is prone to medical misidentifications and grammatical errors. This are unintentional and the practitioner does try to identify and correct these, but some could still be present. Please do not hesitate to contact practitioner for clarification. 10/27/2024 Mouth breathing (ICD-10 - R06.5) Jose is a 58-year-old male with a past medical history of hypothyroidism, type 2 diabetes, essential hypertension, hyperlipidemia, cataract extraction, glaucoma who presents today for a 6-week follow-up visit with no acute concerns today. #Palpitations/tachyc ardia: Currently on propranolol per cardiology #Nasal congestion/allergies : Continue following with online merchant, last appointment was on October 22, 2024 #Swallowing difficulties: Patient did have a barium swallow completed that demonstrated a hiatal hernia, he states he is to have an endoscopy scheduled for December. #Questioning propranolol: Patient is to discuss disc continuing propranolol with his metal miner, this appointment is coming up soon #ENT: Ear nose and throat surgeon of [facility] contacted our office on 09/15/2024 in regards to patient discontinuing propranolol for allergy testing, cardiology was contacted and deemed this to be appropriate #Atherosclerotic plaque: Incidentally found on ultrasound of carotid arteries, both the right and left carotid bulbs 07/18/24.. Continue atorvastatin calcium 20 mg tablets consider coronary calcium scan at follow-up appointment #Intermittent blackout vision: Patient did have an ultrasound completed in regards to the chief complaint of intermittent blackout and blurry vision that demonstrated elevated velocity within the left subclavian artery, this was reported on 07/18/2024. A vascular surgery referral was placed and patient did see vascular on 09/23/2024 where an arterial duplex bilateral scan was obtained.. Patient states that he is continuing to follow with vascular...Different ial at this time is large including globus sensation, vasovagal reaction, mass compressing on optic chiasm, goiter of thyroid, esophageal stricture, achalasia or anxiety produced vision changes. #Type 2 diabetes: Patient's last hemoglobin A1c in office was 7.6%, patient is to continue taking Zituvio 50 mg tablets as well as Ozempic 1mg...Will see if patient may be approved for Mounjaro, this may optimize A1c control. #Glaucoma: Patient states that he regularly follows with his diesel motor mechanic. #History of hyperthyroidism: TSH, T3-T4 pending. Thyroid ultrasound additionally was completed that demonstrated subcentimeter left lobe nodule, no follow-up recommended. Minimally prominent normal-appearing lymph nodes in the neck presumably reactive #Vitamin D deficiency: Sending patient 50,000 units to be taken once weekly for 8 weeks. All questions have been answered to patient's satisfaction. Patient verbalized understanding of diagnosis and treatments explained. Advised to call sooner prior to next visit it any questions/concerns arise. Case discussed with Alessandro HURTADO who reviewed the assessment and plan. Chart, medications, labs, vital signs reviewed. Dictation was accomplished with the use of [employer] voice recognition software, which is prone to medical misidentifications and grammatical errors. This are unintentional and the practitioner does try to identify and correct these, but some could still be present. Please do not hesitate to contact practitioner for clarification. 06/18/2024 CRISELDA (obstructive sleep apnea) (ICD-10 - G47.33) Jose is a 58-year-old male with a past medical history of hypothyroidism, type 2 diabetes, essential hypertension, hyperlipidemia, cataract extraction, glaucoma who presents today for a 6-week follow-up visit with no acute concerns today. #Intermittent blackout vision: At this time we will be conducting an extensive workup for this chief complaint. Patient states that this has been intermittently occurring for numerous years. Patient denies any chest pain, shortness of breath at this time. EKG in office does demonstrate, T wave abnormality, possible anterior lateral ischemia, after discussing with Dr. Jamil this is considered normal for this patient as he may have underlying heart disease.. Will be obtaining a barium swallow as the patient does have this chief complaint only upon swallowing, states that he intermittently feels a stuck sensation , consider ordering an endoscopy if barium swallow was negative. Additionally we will be ordering a thyroid ultrasound as the patient does have a history of hyperthyroidism to ensure there are no goiters, nodules compressing on the esophagus or airway potentially. Along with thyroid ultrasound, carotid artery ultrasound bilaterally will also be ordered to ensure there is no stenosis or occlusions at this time. Consider CT scan of the head with contrast if all scans are negative to ensure there are no compressing lesions on optic nerve causing the blurry sensation upon swallowing. Differential at this time is large including globus sensation, vasovagal reaction, mass compressing on optic chiasm, goiter of thyroid, esophageal stricture, achalasia or anxiety produced vision changes. #Type 2 diabetes: Patient's last hemoglobin A1c in office was 7.6%, patient is to continue taking Zituvio 50 mg tablets as well as increase Ozempic 1mg. #Glaucoma: Patient states that he regularly follows with his diesel motor mechanic. #Nasal congestion: Patient states that he has been continuing to use Flonase, has tried mouth and nasal strips, has tried his CPAP nasal pillow. Has ENT appointment scheduled for August 2024 #Coughing fits: Patient saw online merchant, was placed on a new albuterol inhaler and does have a follow-up scheduled in 4 months. Reassuring that patient does have a ENT referral placed. #Low TSH: Last TSH conducted on July 03, 2023 revealed a value of 0.297. Repeat labs from February 2024 within normal limits.Obtaining repeat TSH, T3-T4 and thyroid ultrasound for further evaluation. All questions have been answered to patient's satisfaction. Patient verbalized understanding of diagnosis and treatments explained. Advised to call sooner prior to next visit it any questions/concerns arise. Case discussed with Alessandro HURTADO who reviewed the assessment and plan. Chart, medications, labs, vital signs reviewed. Dictation was accomplished with the use of [employer] voice recognition software, which is prone to medical misidentifications and grammatical errors. This are unintentional and the practitioner does try to identify and correct these, but some could still be present. Please do not hesitate to contact practitioner for clarification. 10/27/2024 CRISELDA (obstructive sleep apnea) (ICD-10 - G47.33) Jose is a 58-year-old male with a past medical history of hypothyroidism, type 2 diabetes, essential hypertension, hyperlipidemia, cataract extraction, glaucoma who presents today for a 6-week follow-up visit with no acute concerns today. #Palpitations/tachyc ardia: Currently on propranolol per cardiology #Nasal congestion/allergies : Continue following with online merchant, last appointment was on October 22, 2024 #Swallowing difficulties: Patient did have a barium swallow completed that demonstrated a hiatal hernia, he states he is to have an endoscopy scheduled for December. #Questioning propranolol: Patient is to discuss disc continuing propranolol with his metal miner, this appointment is coming up soon #ENT: Ear nose and throat surgeon of [facility] contacted our office on 09/15/2024 in regards to patient discontinuing propranolol for allergy testing, cardiology was contacted and deemed this to be appropriate #Atherosclerotic plaque: Incidentally found on ultrasound of carotid arteries, both the right and left carotid bulbs 07/18/24.. Continue atorvastatin calcium 20 mg tablets consider coronary calcium scan at follow-up appointment #Intermittent blackout vision: Patient did have an ultrasound completed in regards to the chief complaint of intermittent blackout and blurry vision that demonstrated elevated velocity within the left subclavian artery, this was reported on 07/18/2024. A vascular surgery referral was placed and patient did see vascular on 09/23/2024 where an arterial duplex bilateral scan was obtained.. Patient states that he is continuing to follow with vascular...Different ial at this time is large including globus sensation, vasovagal reaction, mass compressing on optic chiasm, goiter of thyroid, esophageal stricture, achalasia or anxiety produced vision changes. #Type 2 diabetes: Patient's last hemoglobin A1c in office was 7.6%, patient is to continue taking Zituvio 50 mg tablets as well as Ozempic 1mg...Will see if patient may be approved for Mounjaro, this may optimize A1c control. #Glaucoma: Patient states that he regularly follows with his diesel motor mechanic. #History of hyperthyroidism: TSH, T3-T4 pending. Thyroid ultrasound additionally was completed that demonstrated subcentimeter left lobe nodule, no follow-up recommended. Minimally prominent normal-appearing lymph nodes in the neck presumably reactive #Vitamin D deficiency: Sending patient 50,000 units to be taken once weekly for 8 weeks. All questions have been answered to patient's satisfaction. Patient verbalized understanding of diagnosis and treatments explained. Advised to call sooner prior to next visit it any questions/concerns arise. Case discussed with Alessandro HURTADO who reviewed the assessment and plan. Chart, medications, labs, vital signs reviewed. Dictation was accomplished with the use of [employer] voice recognition software, which is prone to medical misidentifications and grammatical errors. This are unintentional and the practitioner does try to identify and correct these, but some could still be present. Please do not hesitate to contact practitioner for clarification. 03/13/2024 Mouth breathing (ICD-10 - R06.5) Jose is a 58-year-old male with a past medical history of hypothyroidism, type 2 diabetes, essential hypertension, hyperlipidemia, cataract extraction, glaucoma who presents today for a 6-week follow-up visit with no acute concerns today. #Type 2 diabetes: Patient's last hemoglobin A1c in office was 8.8%, patient is to continue taking Zituvio 50 mg tablets as well as increase Ozempic 0.5mg. #Glaucoma: Patient states that he regularly follows with his diesel motor mechanic.Stat es he is being seen in April for a potential surgery consultation #Nasal congestion: Patient states that he has been continuing to use Flonase, has tried mouth and nasal strips, has tried his CPAP nasal pillow. Has ENT appointment scheduled for August 2024 #Coughing fits: Patient encouraged to trial a alternative antihistamine such as Ngoc, Zyrtec or Claritin as his body may have developed a tolerance to Flonase oral medication. Additionally patient educated to utilize a humidifier in his home to ensure the areas moisturized as this may be contributing towards his coughing and sneezing. Reassuring that patient does have a ENT referral placed. #Low TSH: Last TSH conducted on July 03, 2023 revealed a value of 0.297. Repeat labs from February 2024 within normal limits. All questions have been answered to patient's satisfaction. Patient verbalized understanding of diagnosis and treatments explained. Advised to call sooner prior to next visit it any questions/concerns arise. Case discussed with Alessandro HURTADO who reviewed the assessment and plan. Chart, medications, labs, vital signs reviewed. Dictation was accomplished with the use of [employer] voice recognition software, which is prone to medical misidentifications and grammatical errors. This are unintentional and the practitioner does try to identify and correct these, but some could still be present. Please do not hesitate to contact practitioner for clarification. 05/29/2024 Mouth breathing (ICD-10 - R06.5) Jose is a 58-year-old male with a past medical history of hypothyroidism, type 2 diabetes, essential hypertension, hyperlipidemia, and glaucoma who presents to the office today for a preoperative visit. #Type 2 diabetes: Patient's Hemoglobin A1c in office today 7.9%, this is an improvement from the previous value of 8.8%. patient is to continue taking Zituvio 50 mg tablets as well as increase to Ozempic 1.0 mg. #Glaucoma: Surgery scheduled for June 23 and July 08. At this time patient is cleared for surgery we will fax office note over so the surgeon is aware of patient's A1c at this time #Nasal congestion: Patient states that he has been continuing to use Flonase, has tried mouth and nasal strips, has tried his CPAP nasal pillow. Has ENT appointment scheduled for August 2024. Consider Singulair at follow-up #Coughing fits: No improvement with antihistamine such as allograft, Zyrtec or Claritin. Additionally patient educated to utilize a humidifier in his home to ensure the areas moisturized as this may be contributing towards his coughing and sneezing. Reassuring that patient does have a ENT referral placed. #Low TSH: Last TSH conducted on July 03, 2023 revealed a value of 0.297. Repeat labs from February 2024 within normal limits. All questions have been answered to patient's satisfaction. Patient verbalized understanding of diagnosis and treatments explained. Advised to call sooner prior to next visit it any questions/concerns arise. Case discussed with Alessandro HURTADO who reviewed the assessment and plan. Chart, medications, labs, vital signs reviewed. Dictation was accomplished with the use of [employer] voice recognition software, which is prone to medical misidentifications and grammatical errors. This are unintentional and the practitioner does try to identify and correct these, but some could still be present. Please do not hesitate to contact practitioner for clarification. 05/29/2024 CRISELDA (obstructive sleep apnea) (ICD-10 - G47.33) Jose is a 58-year-old male with a past medical history of hypothyroidism, type 2 diabetes, essential hypertension, hyperlipidemia, and glaucoma who presents to the office today for a preoperative visit. #Type 2 diabetes: Patient's Hemoglobin A1c in office today 7.9%, this is an improvement from the previous value of 8.8%. patient is to continue taking Zituvio 50 mg tablets as well as increase to Ozempic 1.0 mg. #Glaucoma: Surgery scheduled for June 23 and July 08. At this time patient is cleared for surgery we will fax office note over so the surgeon is aware of patient's A1c at this time #Nasal congestion: Patient states that he has been continuing to use Flonase, has tried mouth and nasal strips, has tried his CPAP nasal pillow. Has ENT appointment scheduled for August 2024. Consider Singulair at follow-up #Coughing fits: No improvement with antihistamine such as allograft, Zyrtec or Claritin. Additionally patient educated to utilize a humidifier in his home to ensure the areas moisturized as this may be contributing towards his coughing and sneezing. Reassuring that patient does have a ENT referral placed. #Low TSH: Last TSH conducted on July 03, 2023 revealed a value of 0.297. Repeat labs from February 2024 within normal limits. All questions have been answered to patient's satisfaction. Patient verbalized understanding of diagnosis and treatments explained. Advised to call sooner prior to next visit it any questions/concerns arise. Case discussed with Alessandro HURTADO who reviewed the assessment and plan. Chart, medications, labs, vital signs reviewed. Dictation was accomplished with the use of Dragon voice recognition software, which is prone to medical misidentifications and grammatical errors. This are unintentional and the practitioner does try to identify and correct these, but some could still be present. Please do not hesitate to contact practitioner for clarification. 03/13/2024 CRISELDA (obstructive sleep apnea) (ICD-10 - G47.33) Jose is a 58-year-old male with a past medical history of hypothyroidism, type 2 diabetes, essential hypertension, hyperlipidemia, cataract extraction, glaucoma who presents today for a 6-week follow-up visit with no acute concerns today. #Type 2 diabetes: Patient's last hemoglobin A1c in office was 8.8%, patient is to continue taking Zituvio 50 mg tablets as well as increase Ozempic 0.5mg. #Glaucoma: Patient states that he regularly follows with his diesel motor mechanic.Stat es he is being seen in April for a potential surgery consultation #Nasal congestion: Patient states that he has been continuing to use Flonase, has tried mouth and nasal strips, has tried his CPAP nasal pillow. Has ENT appointment scheduled for August 2024 #Coughing fits: Patient encouraged to trial a alternative antihistamine such as Ngoc, Zyrtec or Claritin as his body may have developed a tolerance to Flonase oral medication. Additionally patient educated to utilize a humidifier in his home to ensure the areas moisturized as this may be contributing towards his coughing and sneezing. Reassuring that patient does have a ENT referral placed. #Low TSH: Last TSH conducted on July 03, 2023 revealed a value of 0.297. Repeat labs from February 2024 within normal limits. All questions have been answered to patient's satisfaction. Patient verbalized understanding of diagnosis and treatments explained. Advised to call sooner prior to next visit it any questions/concerns arise. Case discussed with Alessandro HURTADO who reviewed the assessment and plan. Chart, medications, labs, vital signs reviewed. Dictation was accomplished with the use of [employer] voice recognition software, which is prone to medical misidentifications and grammatical errors. This are unintentional and the practitioner does try to identify and correct these, but some could still be present. Please do not hesitate to contact practitioner for clarification. 06/18/2024 Chest pain, unspecified (ICD-10 - R07.9) Jose is a 58-year-old male with a past medical history of hypothyroidism, type 2 diabetes, essential hypertension, hyperlipidemia, cataract extraction, glaucoma who presents today for a 6-week follow-up visit with no acute concerns today. #Intermittent blackout vision: At this time we will be conducting an extensive workup for this chief complaint. Patient states that this has been intermittently occurring for numerous years. Patient denies any chest pain, shortness of breath at this time. EKG in office does demonstrate, T wave abnormality, possible anterior lateral ischemia, after discussing with Dr. Jamil this is considered normal for this patient as he may have underlying heart disease.. Will be obtaining a barium swallow as the patient does have this chief complaint only upon swallowing, states that he intermittently feels a stuck sensation , consider ordering an endoscopy if barium swallow was negative. Additionally we will be ordering a thyroid ultrasound as the patient does have a history of hyperthyroidism to ensure there are no goiters, nodules compressing on the esophagus or airway potentially. Along with thyroid ultrasound, carotid artery ultrasound bilaterally will also be ordered to ensure there is no stenosis or occlusions at this time. Consider CT scan of the head with contrast if all scans are negative to ensure there are no compressing lesions on optic nerve causing the blurry sensation upon swallowing. Differential at this time is large including globus sensation, vasovagal reaction, mass compressing on optic chiasm, goiter of thyroid, esophageal stricture, achalasia or anxiety produced vision changes. #Type 2 diabetes: Patient's last hemoglobin A1c in office was 7.6%, patient is to continue taking Zituvio 50 mg tablets as well as increase Ozempic 1mg. #Glaucoma: Patient states that he regularly follows with his diesel motor mechanic. #Nasal congestion: Patient states that he has been continuing to use Flonase, has tried mouth and nasal strips, has tried his CPAP nasal pillow. Has ENT appointment scheduled for August 2024 #Coughing fits: Patient saw online merchant, was placed on a new albuterol inhaler and does have a follow-up scheduled in 4 months. Reassuring that patient does have a ENT referral placed. #Low TSH: Last TSH conducted on July 03, 2023 revealed a value of 0.297. Repeat labs from February 2024 within normal limits.Obtaining repeat TSH, T3-T4 and thyroid ultrasound for further evaluation. All questions have been answered to patient's satisfaction. Patient verbalized understanding of diagnosis and treatments explained. Advised to call sooner prior to next visit it any questions/concerns arise. Case discussed with Alessandro HURTADO who reviewed the assessment and plan. Chart, medications, labs, vital signs reviewed. Dictation was accomplished with the use of [employer] voice recognition software, which is prone to medical misidentifications and grammatical errors. This are unintentional and the practitioner does try to identify and correct these, but some could still be present. Please do not hesitate to contact practitioner for clarification. 10/27/2024 Chest pain, unspecified (ICD-10 - R07.9) Jose is a 58-year-old male with a past medical history of hypothyroidism, type 2 diabetes, essential hypertension, hyperlipidemia, cataract extraction, glaucoma who presents today for a 6-week follow-up visit with no acute concerns today. #Palpitations/tachyc ardia: Currently on propranolol per cardiology #Nasal congestion/allergies : Continue following with online merchant, last appointment was on October 22, 2024 #Swallowing difficulties: Patient did have a barium swallow completed that demonstrated a hiatal hernia, he states he is to have an endoscopy scheduled for December. #Questioning propranolol: Patient is to discuss disc continuing propranolol with his metal miner, this appointment is coming up soon #ENT: Ear nose and throat surgeon of [facility] contacted our office on 09/15/2024 in regards to patient discontinuing propranolol for allergy testing, cardiology was contacted and deemed this to be appropriate #Atherosclerotic plaque: Incidentally found on ultrasound of carotid arteries, both the right and left carotid bulbs 07/18/24.. Continue atorvastatin calcium 20 mg tablets consider coronary calcium scan at follow-up appointment #Intermittent blackout vision: Patient did have an ultrasound completed in regards to the chief complaint of intermittent blackout and blurry vision that demonstrated elevated velocity within the left subclavian artery, this was reported on 07/18/2024. A vascular surgery referral was placed and patient did see vascular on 09/23/2024 where an arterial duplex bilateral scan was obtained.. Patient states that he is continuing to follow with vascular...Different ial at this time is large including globus sensation, vasovagal reaction, mass compressing on optic chiasm, goiter of thyroid, esophageal stricture, achalasia or anxiety produced vision changes. #Type 2 diabetes: Patient's last hemoglobin A1c in office was 7.6%, patient is to continue taking Zituvio 50 mg tablets as well as Ozempic 1mg...Will see if patient may be approved for Mounjaro, this may optimize A1c control. #Glaucoma: Patient states that he regularly follows with his diesel motor mechanic. #History of hyperthyroidism: TSH, T3-T4 pending. Thyroid ultrasound additionally was completed that demonstrated subcentimeter left lobe nodule, no follow-up recommended. Minimally prominent normal-appearing lymph nodes in the neck presumably reactive #Vitamin D deficiency: Sending patient 50,000 units to be taken once weekly for 8 weeks. All questions have been answered to patient's satisfaction. Patient verbalized understanding of diagnosis and treatments explained. Advised to call sooner prior to next visit it any questions/concerns arise. Case discussed with Alessandro HURTADO who reviewed the assessment and plan. Chart, medications, labs, vital signs reviewed. Dictation was accomplished with the use of [employer] voice recognition software, which is prone to medical misidentifications and grammatical errors. This are unintentional and the practitioner does try to identify and correct these, but some could still be present. Please do not hesitate to contact practitioner for clarification. 10/27/2024 Vitamin D deficiency, unspecified (ICD-10 - E55.9) Jose is a 58-year-old male with a past medical history of hypothyroidism, type 2 diabetes, essential hypertension, hyperlipidemia, cataract extraction, glaucoma who presents today for a 6-week follow-up visit with no acute concerns today. #Palpitations/tachyc ardia: Currently on propranolol per cardiology #Nasal congestion/allergies : Continue following with online merchant, last appointment was on October 22, 2024 #Swallowing difficulties: Patient did have a barium swallow completed that demonstrated a hiatal hernia, he states he is to have an endoscopy scheduled for December. #Questioning propranolol: Patient is to discuss disc continuing propranolol with his metal miner, this appointment is coming up soon #ENT: Ear nose and throat surgeon of [facility] contacted our office on 09/15/2024 in regards to patient discontinuing propranolol for allergy testing, cardiology was contacted and deemed this to be appropriate #Atherosclerotic plaque: Incidentally found on ultrasound of carotid arteries, both the right and left carotid bulbs 07/18/24.. Continue atorvastatin calcium 20 mg tablets consider coronary calcium scan at follow-up appointment #Intermittent blackout vision: Patient did have an ultrasound completed in regards to the chief complaint of intermittent blackout and blurry vision that demonstrated elevated velocity within the left subclavian artery, this was reported on 07/18/2024. A vascular surgery referral was placed and patient did see vascular on 09/23/2024 where an arterial duplex bilateral scan was obtained.. Patient states that he is continuing to follow with vascular...Different ial at this time is large including globus sensation, vasovagal reaction, mass compressing on optic chiasm, goiter of thyroid, esophageal stricture, achalasia or anxiety produced vision changes. #Type 2 diabetes: Patient's last hemoglobin A1c in office was 7.6%, patient is to continue taking Zituvio 50 mg tablets as well as Ozempic 1mg...Will see if patient may be approved for Mounjaro, this may optimize A1c control. #Glaucoma: Patient states that he regularly follows with his diesel motor mechanic. #History of hyperthyroidism: TSH, T3-T4 pending. Thyroid ultrasound additionally was completed that demonstrated subcentimeter left lobe nodule, no follow-up recommended. Minimally prominent normal-appearing lymph nodes in the neck presumably reactive #Vitamin D deficiency: Sending patient 50,000 units to be taken once weekly for 8 weeks. All questions have been answered to patient's satisfaction. Patient verbalized understanding of diagnosis and treatments explained. Advised to call sooner prior to next visit it any questions/concerns arise. Case discussed with Alessandro HURTADO who reviewed the assessment and plan. Chart, medications, labs, vital signs reviewed. Dictation was accomplished with the use of [employer] voice recognition software, which is prone to medical misidentifications and grammatical errors. This are unintentional and the practitioner does try to identify and correct these, but some could still be present. Please do not hesitate to contact practitioner for clarification. 06/18/2024 Vitamin D deficiency, unspecified (ICD-10 - E55.9) Jose is a 58-year-old male with a past medical history of hypothyroidism, type 2 diabetes, essential hypertension, hyperlipidemia, cataract extraction, glaucoma who presents today for a 6-week follow-up visit with no acute concerns today. #Intermittent blackout vision: At this time we will be conducting an extensive workup for this chief complaint. Patient states that this has been intermittently occurring for numerous years. Patient denies any chest pain, shortness of breath at this time. EKG in office does demonstrate, T wave abnormality, possible anterior lateral ischemia, after discussing with Dr. Jamil this is considered normal for this patient as he may have underlying heart disease.. Will be obtaining a barium swallow as the patient does have this chief complaint only upon swallowing, states that he intermittently feels a stuck sensation , consider ordering an endoscopy if barium swallow was negative. Additionally we will be ordering a thyroid ultrasound as the patient does have a history of hyperthyroidism to ensure there are no goiters, nodules compressing on the esophagus or airway potentially. Along with thyroid ultrasound, carotid artery ultrasound bilaterally will also be ordered to ensure there is no stenosis or occlusions at this time. Consider CT scan of the head with contrast if all scans are negative to ensure there are no compressing lesions on optic nerve causing the blurry sensation upon swallowing. Differential at this time is large including globus sensation, vasovagal reaction, mass compressing on optic chiasm, goiter of thyroid, esophageal stricture, achalasia or anxiety produced vision changes. #Type 2 diabetes: Patient's last hemoglobin A1c in office was 7.6%, patient is to continue taking Zituvio 50 mg tablets as well as increase Ozempic 1mg. #Glaucoma: Patient states that he regularly follows with his diesel motor mechanic. #Nasal congestion: Patient states that he has been continuing to use Flonase, has tried mouth and nasal strips, has tried his CPAP nasal pillow. Has ENT appointment scheduled for August 2024 #Coughing fits: Patient saw online merchant, was placed on a new albuterol inhaler and does have a follow-up scheduled in 4 months. Reassuring that patient does have a ENT referral placed. #Low TSH: Last TSH conducted on July 03, 2023 revealed a value of 0.297. Repeat labs from February 2024 within normal limits.Obtaining repeat TSH, T3-T4 and thyroid ultrasound for further evaluation. All questions have been answered to patient's satisfaction. Patient verbalized understanding of diagnosis and treatments explained. Advised to call sooner prior to next visit it any questions/concerns arise. Case discussed with Alessandro HURTADO who reviewed the assessment and plan. Chart, medications, labs, vital signs reviewed. Dictation was accomplished with the use of [employer] voice recognition software, which is prone to medical misidentifications and grammatical errors. This are unintentional and the practitioner does try to identify and correct these, but some could still be present. Please do not hesitate to contact practitioner for clarification. 10/27/2024 Food sticks on swallowing (ICD-10 - R13.10) Jose is a 58-year-old male with a past medical history of hypothyroidism, type 2 diabetes, essential hypertension, hyperlipidemia, cataract extraction, glaucoma who presents today for a 6-week follow-up visit with no acute concerns today. #Palpitations/tachyc ardia: Currently on propranolol per cardiology #Nasal congestion/allergies : Continue following with online merchant, last appointment was on October 22, 2024 #Swallowing difficulties: Patient did have a barium swallow completed that demonstrated a hiatal hernia, he states he is to have an endoscopy scheduled for December. #Questioning propranolol: Patient is to discuss disc continuing propranolol with his metal miner, this appointment is coming up soon #ENT: Ear nose and throat surgeon of [facility] contacted our office on 09/15/2024 in regards to patient discontinuing propranolol for allergy testing, cardiology was contacted and deemed this to be appropriate #Atherosclerotic plaque: Incidentally found on ultrasound of carotid arteries, both the right and left carotid bulbs 07/18/24.. Continue atorvastatin calcium 20 mg tablets consider coronary calcium scan at follow-up appointment #Intermittent blackout vision: Patient did have an ultrasound completed in regards to the chief complaint of intermittent blackout and blurry vision that demonstrated elevated velocity within the left subclavian artery, this was reported on 07/18/2024. A vascular surgery referral was placed and patient did see vascular on 09/23/2024 where an arterial duplex bilateral scan was obtained.. Patient states that he is continuing to follow with vascular...Different ial at this time is large including globus sensation, vasovagal reaction, mass compressing on optic chiasm, goiter of thyroid, esophageal stricture, achalasia or anxiety produced vision changes. #Type 2 diabetes: Patient's last hemoglobin A1c in office was 7.6%, patient is to continue taking Zituvio 50 mg tablets as well as Ozempic 1mg...Will see if patient may be approved for Mounjaro, this may optimize A1c control. #Glaucoma: Patient states that he regularly follows with his diesel motor mechanic. #History of hyperthyroidism: TSH, T3-T4 pending. Thyroid ultrasound additionally was completed that demonstrated subcentimeter left lobe nodule, no follow-up recommended. Minimally prominent normal-appearing lymph nodes in the neck presumably reactive #Vitamin D deficiency: Sending patient 50,000 units to be taken once weekly for 8 weeks. All questions have been answered to patient's satisfaction. Patient verbalized understanding of diagnosis and treatments explained. Advised to call sooner prior to next visit it any questions/concerns arise. Case discussed with Alessandro HURTADO who reviewed the assessment and plan. Chart, medications, labs, vital signs reviewed. Dictation was accomplished with the use of [employer] voice recognition software, which is prone to medical misidentifications and grammatical errors. This are unintentional and the practitioner does try to identify and correct these, but some could still be present. Please do not hesitate to contact practitioner for clarification. 10/27/2024 Vision changes (ICD-10 - H53.9) Jose is a 58-year-old male with a past medical history of hypothyroidism, type 2 diabetes, essential hypertension, hyperlipidemia, cataract extraction, glaucoma who presents today for a 6-week follow-up visit with no acute concerns today. #Palpitations/tachyc ardia: Currently on propranolol per cardiology #Nasal congestion/allergies : Continue following with online merchant, last appointment was on October 22, 2024 #Swallowing difficulties: Patient did have a barium swallow completed that demonstrated a hiatal hernia, he states he is to have an endoscopy scheduled for December. #Questioning propranolol: Patient is to discuss disc continuing propranolol with his metal miner, this appointment is coming up soon #ENT: Ear nose and throat surgeon of [facility] contacted our office on 09/15/2024 in regards to patient discontinuing propranolol for allergy testing, cardiology was contacted and deemed this to be appropriate #Atherosclerotic plaque: Incidentally found on ultrasound of carotid arteries, both the right and left carotid bulbs 07/18/24.. Continue atorvastatin calcium 20 mg tablets consider coronary calcium scan at follow-up appointment #Intermittent blackout vision: Patient did have an ultrasound completed in regards to the chief complaint of intermittent blackout and blurry vision that demonstrated elevated velocity within the left subclavian artery, this was reported on 07/18/2024. A vascular surgery referral was placed and patient did see vascular on 09/23/2024 where an arterial duplex bilateral scan was obtained.. Patient states that he is continuing to follow with vascular...Different ial at this time is large including globus sensation, vasovagal reaction, mass compressing on optic chiasm, goiter of thyroid, esophageal stricture, achalasia or anxiety produced vision changes. #Type 2 diabetes: Patient's last hemoglobin A1c in office was 7.6%, patient is to continue taking Zituvio 50 mg tablets as well as Ozempic 1mg...Will see if patient may be approved for Mounjaro, this may optimize A1c control. #Glaucoma: Patient states that he regularly follows with his diesel motor mechanic. #History of hyperthyroidism: TSH, T3-T4 pending. Thyroid ultrasound additionally was completed that demonstrated subcentimeter left lobe nodule, no follow-up recommended. Minimally prominent normal-appearing lymph nodes in the neck presumably reactive #Vitamin D deficiency: Sending patient 50,000 units to be taken once weekly for 8 weeks. All questions have been answered to patient's satisfaction. Patient verbalized understanding of diagnosis and treatments explained. Advised to call sooner prior to next visit it any questions/concerns arise. Case discussed with Alessandro HURTADO who reviewed the assessment and plan. Chart, medications, labs, vital signs reviewed. Dictation was accomplished with the use of [employer] voice recognition software, which is prone to medical misidentifications and grammatical errors. This are unintentional and the practitioner does try to identify and correct these, but some could still be present. Please do not hesitate to contact practitioner for clarification. 06/18/2024 Food sticks on swallowing (ICD-10 - R13.10) Jose is a 58-year-old male with a past medical history of hypothyroidism, type 2 diabetes, essential hypertension, hyperlipidemia, cataract extraction, glaucoma who presents today for a 6-week follow-up visit with no acute concerns today. #Intermittent blackout vision: At this time we will be conducting an extensive workup for this chief complaint. Patient states that this has been intermittently occurring for numerous years. Patient denies any chest pain, shortness of breath at this time. EKG in office does demonstrate, T wave abnormality, possible anterior lateral ischemia, after discussing with Dr. Jamil this is considered normal for this patient as he may have underlying heart disease.. Will be obtaining a barium swallow as the patient does have this chief complaint only upon swallowing, states that he intermittently feels a stuck sensation , consider ordering an endoscopy if barium swallow was negative. Additionally we will be ordering a thyroid ultrasound as the patient does have a history of hyperthyroidism to ensure there are no goiters, nodules compressing on the esophagus or airway potentially. Along with thyroid ultrasound, carotid artery ultrasound bilaterally will also be ordered to ensure there is no stenosis or occlusions at this time. Consider CT scan of the head with contrast if all scans are negative to ensure there are no compressing lesions on optic nerve causing the blurry sensation upon swallowing. Differential at this time is large including globus sensation, vasovagal reaction, mass compressing on optic chiasm, goiter of thyroid, esophageal stricture, achalasia or anxiety produced vision changes. #Type 2 diabetes: Patient's last hemoglobin A1c in office was 7.6%, patient is to continue taking Zituvio 50 mg tablets as well as increase Ozempic 1mg. #Glaucoma: Patient states that he regularly follows with his diesel motor mechanic. #Nasal congestion: Patient states that he has been continuing to use Flonase, has tried mouth and nasal strips, has tried his CPAP nasal pillow. Has ENT appointment scheduled for August 2024 #Coughing fits: Patient saw online merchant, was placed on a new albuterol inhaler and does have a follow-up scheduled in 4 months. Reassuring that patient does have a ENT referral placed. #Low TSH: Last TSH conducted on July 03, 2023 revealed a value of 0.297. Repeat labs from February 2024 within normal limits.Obtaining repeat TSH, T3-T4 and thyroid ultrasound for further evaluation. All questions have been answered to patient's satisfaction. Patient verbalized understanding of diagnosis and treatments explained. Advised to call sooner prior to next visit it any questions/concerns arise. Case discussed with Alessandro HURTADO who reviewed the assessment and plan. Chart, medications, labs, vital signs reviewed. Dictation was accomplished with the use of [employer] voice recognition software, which is prone to medical misidentifications and grammatical errors. This are unintentional and the practitioner does try to identify and correct these, but some could still be present. Please do not hesitate to contact practitioner for clarification. 10/27/2024 Encounter for examination of blood pressure without abnormal findings (ICD-10 - Z01.30) Jose is a 58-year-old male with a past medical history of hypothyroidism, type 2 diabetes, essential hypertension, hyperlipidemia, cataract extraction, glaucoma who presents today for a 6-week follow-up visit with no acute concerns today. #Palpitations/tachyc ardia: Currently on propranolol per cardiology #Nasal congestion/allergies : Continue following with online merchant, last appointment was on October 22, 2024 #Swallowing difficulties: Patient did have a barium swallow completed that demonstrated a hiatal hernia, he states he is to have an endoscopy scheduled for December. #Questioning propranolol: Patient is to discuss disc continuing propranolol with his metal miner, this appointment is coming up soon #ENT: Ear nose and throat surgeon of [facility] contacted our office on 09/15/2024 in regards to patient discontinuing propranolol for allergy testing, cardiology was contacted and deemed this to be appropriate #Atherosclerotic plaque: Incidentally found on ultrasound of carotid arteries, both the right and left carotid bulbs 07/18/24.. Continue atorvastatin calcium 20 mg tablets consider coronary calcium scan at follow-up appointment #Intermittent blackout vision: Patient did have an ultrasound completed in regards to the chief complaint of intermittent blackout and blurry vision that demonstrated elevated velocity within the left subclavian artery, this was reported on 07/18/2024. A vascular surgery referral was placed and patient did see vascular on 09/23/2024 where an arterial duplex bilateral scan was obtained.. Patient states that he is continuing to follow with vascular...Different ial at this time is large including globus sensation, vasovagal reaction, mass compressing on optic chiasm, goiter of thyroid, esophageal stricture, achalasia or anxiety produced vision changes. #Type 2 diabetes: Patient's last hemoglobin A1c in office was 7.6%, patient is to continue taking Zituvio 50 mg tablets as well as Ozempic 1mg...Will see if patient may be approved for Mounjaro, this may optimize A1c control. #Glaucoma: Patient states that he regularly follows with his diesel motor mechanic. #History of hyperthyroidism: TSH, T3-T4 pending. Thyroid ultrasound additionally was completed that demonstrated subcentimeter left lobe nodule, no follow-up recommended. Minimally prominent normal-appearing lymph nodes in the neck presumably reactive #Vitamin D deficiency: Sending patient 50,000 units to be taken once weekly for 8 weeks. All questions have been answered to patient's satisfaction. Patient verbalized understanding of diagnosis and treatments explained. Advised to call sooner prior to next visit it any questions/concerns arise. Case discussed with Alessandro HURTADO who reviewed the assessment and plan. Chart, medications, labs, vital signs reviewed. Dictation was accomplished with the use of [employer] voice recognition software, which is prone to medical misidentifications and grammatical errors. This are unintentional and the practitioner does try to identify and correct these, but some could still be present. Please do not hesitate to contact practitioner for clarification. 06/18/2024 Vision changes (ICD-10 - H53.9) Jose is a 58-year-old male with a past medical history of hypothyroidism, type 2 diabetes, essential hypertension, hyperlipidemia, cataract extraction, glaucoma who presents today for a 6-week follow-up visit with no acute concerns today. #Intermittent blackout vision: At this time we will be conducting an extensive workup for this chief complaint. Patient states that this has been intermittently occurring for numerous years. Patient denies any chest pain, shortness of breath at this time. EKG in office does demonstrate, T wave abnormality, possible anterior lateral ischemia, after discussing with Dr. Jamil this is considered normal for this patient as he may have underlying heart disease.. Will be obtaining a barium swallow as the patient does have this chief complaint only upon swallowing, states that he intermittently feels a stuck sensation , consider ordering an endoscopy if barium swallow was negative. Additionally we will be ordering a thyroid ultrasound as the patient does have a history of hyperthyroidism to ensure there are no goiters, nodules compressing on the esophagus or airway potentially. Along with thyroid ultrasound, carotid artery ultrasound bilaterally will also be ordered to ensure there is no stenosis or occlusions at this time. Consider CT scan of the head with contrast if all scans are negative to ensure there are no compressing lesions on optic nerve causing the blurry sensation upon swallowing. Differential at this time is large including globus sensation, vasovagal reaction, mass compressing on optic chiasm, goiter of thyroid, esophageal stricture, achalasia or anxiety produced vision changes. #Type 2 diabetes: Patient's last hemoglobin A1c in office was 7.6%, patient is to continue taking Zituvio 50 mg tablets as well as increase Ozempic 1mg. #Glaucoma: Patient states that he regularly follows with his diesel motor mechanic. #Nasal congestion: Patient states that he has been continuing to use Flonase, has tried mouth and nasal strips, has tried his CPAP nasal pillow. Has ENT appointment scheduled for August 2024 #Coughing fits: Patient saw online merchant, was placed on a new albuterol inhaler and does have a follow-up scheduled in 4 months. Reassuring that patient does have a ENT referral placed. #Low TSH: Last TSH conducted on July 03, 2023 revealed a value of 0.297. Repeat labs from February 2024 within normal limits.Obtaining repeat TSH, T3-T4 and thyroid ultrasound for further evaluation. All questions have been answered to patient's satisfaction. Patient verbalized understanding of diagnosis and treatments explained. Advised to call sooner prior to next visit it any questions/concerns arise. Case discussed with Alessandro HURTADO who reviewed the assessment and plan. Chart, medications, labs, vital signs reviewed. Dictation was accomplished with the use of [employer] voice recognition software, which is prone to medical misidentifications and grammatical errors. This are unintentional and the practitioner does try to identify and correct these, but some could still be present. Please do not hesitate to contact practitioner for clarification. Plan Of Treatment Pending Test Test Name Order Date Ultrasound : Carotids 06/18/2024 Barium Swallow 06/18/2024 X ray : Chest with 2 views 02/08/2023 Hemoglobin A1c 10/23/2019 Lipid Panel 10/23/2019 Comp. Metabolic Panel (14) 10/23/2019 CBC 10/23/2019 Urinalysis 10/23/2019 EKG 08/06/2019 EKG 12/30/2020 HEMOGLOBIN A1C 06/29/2020 HEMOGLOBIN A1C 08/02/2020 Sex Hormone Binding Globulin 10/18/2021 Cologuard 05/07/2019 Cologuard 09/03/2023 LIPID PANEL, STANDARD 09/03/2023 LIPID PANEL, STANDARD 12/29/2022 LIPID PANEL, STANDARD 03/09/2021 LIPID PANEL, STANDARD 06/18/2024 LIPID PANEL, STANDARD 06/14/2021 MICROALBUMIN, RANDOM URINE (W/CREATININE ) 06/14/2021 MICROALBUMIN, RANDOM URINE (W/CREATININE ) 09/03/2023 COMPREHENSIVE METABOLIC PANEL 09/03/2023 COMPREHENSIVE METABOLIC PANEL 12/29/2022 COMPREHENSIVE METABOLIC PANEL 03/09/2021 COMPREHENSIVE METABOLIC PANEL 06/14/2021 COMPREHENSIVE METABOLIC PANEL 06/18/2024 BASIC METABOLIC PANEL 06/18/2024 BASIC METABOLIC PANEL 01/06/2021 POTASSIUM 12/30/2020 MAGNESIUM 01/06/2021 CBC (INCLUDES DIFF/PLT) 12/29/2022 CBC (INCLUDES DIFF/PLT) 09/03/2023 CBC (INCLUDES DIFF/PLT) 03/09/2021 CBC (INCLUDES DIFF/PLT) 06/14/2021 CBC (INCLUDES DIFF/PLT) 06/18/2024 URINALYSIS, COMPLETE 03/09/2021 URINALYSIS, COMPLETE 12/29/2022 HEMOGLOBIN A1c 09/03/2023 HEMOGLOBIN A1c 05/02/2022 HEMOGLOBIN A1c 12/29/2022 HEMOGLOBIN A1c 03/09/2021 HEMOGLOBIN A1c 06/14/2021 HEMOGLOBIN A1c 06/18/2024 HEMOGLOBIN A1c 01/31/2021 INSULIN 05/02/2022 VITAMIN B12 06/18/2024 PSA (FREE AND TOTAL) 06/18/2024 PSA (FREE AND TOTAL) 12/29/2022 T4, FREE 01/31/2024 TSH 01/31/2024 TSH 12/29/2022 T3, FREE 01/31/2024 VITAMIN D,25-OH,TOTAL,IA 12/29/2022 VITAMIN D,25-OH,TOTAL,IA 06/18/2024 US Thyroid 06/18/2024 TSH+T4F+T3Free 06/18/2024 PPC Hemoglobin A1C 05/29/2024 PPC Hemoglobin A1C 06/18/2024 PPC Hemoglobin A1C 10/27/2024 Next Appt Details Provider Name:ASHLYN CALERO, 08:00:00 AM, [address], [place], [address], Insurance Providers Payer Name Payer Address Payer Phone Subscriber Number Group Number Insured Name Patient Relationship to Insured Coverage Start Date Coverage End Date [facility] [address] [place] [id number] Guilherme AUSTIN JOSE Self - patient is the insured Medical (General) History Medical History History ICD Code Hyperthyroidism E05.90 Type 2 diabetes mellitus wit hout complication, unspecified whether halfway insulin use E11.9 Essential hypertension I10 Hyperlipidemia, unspecified E78.5 Cataract extraction status, left eye Z98 .42 Glaucoma secondary to other eye disorders, unspecified eye, stage unspecified H40.50X0 Hiatal hernia K44.9 Atherosclerosis I70.90 Elevated subclavian velocity (L)
--- OUTSIDE RECORDS SUMMARY | 2024-11-19 11:20 | XMS_ITS | Encounter Summary ---
Author Organization [facility] Address [address] [place] [address] Care Team Providers Care Senior Db2 Systems Programmer Name Role Phone Pau Peters Primary Care Provider [phone] Reason for Visit * Reason Onset Date Comments appointment 10/15/2024 Encounter Details Date Type Department Care Team ([facility] st Contact Info) Description 10/15/2024 Telephone Gastroenterology - [place] 175 [facility] [address] [facility] [address] [facility] [address] [place] [address] Naya Wallace MD [address] [place] [phone] Social History Tobacco Use Types Packs/Day Years Used Date Smoking Tobacco: Unknown Sex and Gender Information Value Date Recorded Sex Assigned at Not on file Legal Sex Male 2:11 AM EST Gender Identity Not on file Sexual Orientation Not on file documented as of this encounter Progress Notes * Yudy Wood - 10/15/2024 12:54 PM EDT Records received from [facility] to schedule an OV for dysphagia. Called patient and LM to schedule OV. Records scanned into patient's chart documented in this encounter Plan of Treatment Not on file documented as of this encounter Visit Diagnoses Not on filedocumented in this encounter Care Teams Senior Db2 Systems Programmer Relationship Specialty Start Date End Date Pau Peters PA [address] [place] [id number] PCP - General 10/15/24 documented as of this encounter
--- OUTSIDE RECORDS SUMMARY | 2024-11-19 11:20 | XMS_ITS | Clinical Summary ---
Author Organization [facility] Address [address] [place] [address] Phone Care Team Providers Care Landscape Crew Member Name Role Phone Pau Peters Primary Care Provider [phone] Allergies Active Allergy Reactions Criticality Noted Date Comments Albuterol Palpitations 11/04/2024 Penicillins Hives 07/23/2020 Product containing penicillin (product) Pollen Extracts Unknown 11/04/2024 Medications amLODIPine (NORVASC) 5 mg tablet Take by mouth 1 (one) time each day. Active atorvastatin (LIPITOR) 20 mg tablet Take 1 tablet (20 mg total) by mouth at bedtime. Active ergocalciferol (VITAMIN D-2) 1,250 mcg (50,000 unit) capsule Take 1 capsule (50,000 Units total) by mouth 1 (one) time per week. Active potassium chloride (KLOR-CON M20) 20 mEq CR tablet Take 1 tablet (20 mEq total) by mouth 1 (one) time each day. Tablet may be swallowed whole (do not crush/chew/suck on) OR broken in half and each half swallowed separately OR dissolved (whole tablet) in ~4 ounces of water (allow ~2 minutes to dissolve, stir well and administer immediately). Active losartan (COZAAR) 100 mg tablet Take 1 tablet (100 mg total) by mouth 1 (one) time each day. Active metFORMIN (GLUCOPHAGE) 500 mg tablet Take 1 tablet (500 mg total) by mouth 2 (two) times a day with meals. Active tirzepatide (Mounjaro) 2.5 mg/0.5 mL injection Inject 0.5 mL (2.5 mg total) under the skin every 7 (seven) days. Active omeprazole OTC (PriLOSEC OTC) 20 mg EC tablet Take 1 tablet (20 mg total) by mouth 1 (one) time each day. Do not crush, chew, or split. Active propranoloL (INDERAL) 40 mg tablet Take 1 tablet (40 mg total) by mouth 2 (two) times a day. Active sildenafiL (VIAGRA) 100 mg tablet Take 1 tablet (100 mg total) by mouth 1 (one) time each day if needed for erectile dysfunction. Active SITagliptin (Zituvio) 50 mg tablet Take 50 mg by mouth 1 (one) time each day. Active Encounters Date Type Department Care Team Description 11/04/2024 9:50 AM EDT Office Visit [facility] - [facility] [address] [facility] [address] [place] [address] Jamel Galloway MD Tachycardia (Primary Dx); Palpitations; Primary hypertension; Vasovagal attack; PVD (peripheral vascular disease) ([facility] V24) 10/15/2024 Telephone Gastroenterology - [place] [address] [place] [address] [facility] [address] [place] [address] Naya Wallace MD from Last 3 Months Medical History Medical History Date Comments Asthma DX:Asthma Cough DX:Cough 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 ([facility] V24, [facility] V28) DX:Type 2 marissa betes mellitus with complications ([facility]) Social History Tobacco Use Types Packs/Day Years Used Date Smoking Tobacco: Former Cigarettes Tobacco Cessation:Counseling Given: Not Answered Alcohol Use Standard Drinks/Week Comments Yes 0 (1 standard drink = 0.6 oz pur e alcohol) rare Sex and Gender Information Value Date Recorded Sex Assigned at Not on file Legal Sex Male 2:11 AM EST Gender Identity Not on file Sexual Orientation Not on file Obstetrics History Last Filed Vital Signs Vital Sign Reading Time Taken Comments Blood Pressure 170/100 11/04/2024 9:51 AM EDT Pulse 67 11/04/2024 9:51 AM EDT Temperature - - Respiratory Rate - - Oxygen Saturation 97% 11/04/2024 9:51 AM EDT Inhaled Oxygen Concentration - - Weight 88.9 kg (196 lb) 11/04/2024 9:51 AM EDT Height 175.3 cm (5' 9 ) 11/04/2024 9:51 AM EDT Body Mass Index 28.94 11/04/2024 9:51 AM EDT Plan of Treatment Health Maintenance Due Date Last Done Comments Diabetes: Annual GFR (Glomerular Filtration Rate) 1966 Diabetes: Annual Foot Exam 1976 Diabetes: Annual Retina Eye Exam 1976 DTaP,Tdap,and Td Vaccines (1 - Tdap) 1985 Hepatitis B Vaccines (1 of 3 - 19+ 3-dose series) 1985 Pneumococcal Vaccine: 50+ Years (1 of 2 - PCV) 1985 Zoster Vaccines (1 of 2) 2016 Cholesterol Screening (Lipid Panel) 02/12/2022 HIV Screening 02/12/2022 Hepatitis C Screening 02/12/2022 Social Influencers of Health Screening 02/12/2022 Depression Screening 03/12/2024 Diabetes: Annual Urine Albumin-Creatinine Ratio (uACR) 10/13/2024 Diabetes: Blood Sugar Control Test (HGBA1C) 10/13/2024 Hypertension/CHF/CAD Annual BMP Blood Test 10/13/2024 COVID-19 Vaccine ( season) 2024 01/05/2023, 12/01/2021, 09/08/2021, Additional history exists Influenza Vaccine (#1) 2024 , 12/01/2021, 01/19/2021, Additional history exists Colorectal Cancer Screening: FIT-DNA (Cologuard) 09/05/2026 09/06/2023, [...] 20 months Aged Out No longer eligible based on patient's age to complete this topic Varicella Vaccines Aged Out No longer eligible based on patient's age to complete this topic Procedures Procedure Name Priority Date/Time Associated Diagnosis Comments ECG 12-LEAD Routine 11/04/2024 10:04 AM EDT Tachycardia from Last 3 Months Results * ECG 12 lead (11/04/2024 10:04 AM EDT) Ventricular Rate ECG 67 BPM GEMUSE Atrial Rate 67 BPM GEMUSE P-R Interval 206 ms GEMUSE QRS Duration 96 ms GEMUSE Q-T Interval 396 ms GEMUSE QTc 418 ms GEMUSE P Wave [place] 55 degrees GEMUSE R [place] 39 degrees GEMUSE T [place] 115 degrees GEMUSE ECG Interpretation Normal sinus rhythm T wave abnormality, consider anterolateral ischemia Abnormal ECG No previous ECGs available Confirmed by MD Nilesh, Jamel ([id number]) on 11/04/2024 12:37:30 PM GEMUSE 11/04/2024 10:0 4 AM EDT 11/04/2024 12:37 PM EDT us Jamel Galloway MD ECG ORDERABLES Final Res ult GEMUSE from Last 3 Months Insurance [facility] [place] [id number] Care Teams Landscape Crew Member Relationship Specialty Start Date End Date Pau Peters PA [address] [place] [phone] PCP - General 10/15/24
== END ==
LOC: HO.SL 09:29
PROVIDERS: Visit Provider Nurse Practitioner Family
DX: Z13.89 Encounter for screening for other disorder (principal)
CPT/HCPCS: 95806

== ENCOUNTER → 2024-11-19 09:38 | Outpatient (BNV) | payer OTHER, SELFPAY | PROVIDERS: Visit Provider Internal Medicine | DX: G47.33 Obstructive sleep apnea (adult) (pediatric) (principal) | CPT/HCPCS: 95806 ==

== ENCOUNTER 2024-12-10 09:38 | Outpatient (AMB) | payer OTHER, SELFPAY ==
--- NOTE | 2024-12-10 09:09 | MHC.OFFVIS ---
Vital Signs 12/10/24 09:40 Height 5 ft 9 in Weight 194 lb 2 oz BMI 28.7 BP 146/88 H Blood Pressure Location Rt brachial Position Sitting Pulse 79 Pulse Source Pulse Oximeter Pulse Oximetry (%) 97 Oxygen Delivery Method Room Air Intake Visit Reasons: sleep apnea/ SS FU Allergies Penicillins Allergy (Intermediate, Verified 12/10/24 09:42) Unknown HPI HPI sleep apnea/ SS FU: Details: Jose is a pleasant 59 year old male, former 40 pack year smoker, quit 2000, with underlying CRISELDA on CPAP, asthma, HTN, DMII and hyperthyroidism. He was initially referred by PCP for management of CRISELDA. He has been using a CPAP machine for approximately 20 years, currently using 15+ year old CPAP, initially diagnosed with severe sleep apnea. Prior to initiating CPAP, he reported significant daytime fatigue, loud snoring, nonrestorative sleep and witnessed apneas. At the last visit he was sent for home sleep study to reestablish CRISELDA diagnosis and discuss a replacement unit. At this time, he denies respiratory symptoms. [facility] Social History Patient Tobacco Use Status: Former Tobacco user Review of Systems Const Denies chills, Denies excessive sweating, Denies fever(s), Denies headache(s) and Denies night sweats Eyes Denies dry eyes, Denies irritation and Denies itchy eyes ENT Reports Normal hearing present, Denies headache(s), Denies nasal congestion, Denies nasal discharge, Denies post nasal drip and Denies sore throat Card Denies chest pain, Denies chest pain at rest, Denies chest pain with activity, Denies claudication, Denies leg edema, Denies dyspnea, Denies dyspnea on exertion, Denies orthopnea and Denies paroxysmal nocturnal dyspnea Resp Denies chest congestion, Denies cough, Denies excessive phlegm production, Denies pain on inspiration, Denies pain with cough, Denies dyspnea, Denies dyspnea on exertion, Denies stridor and Denies wheezing Musc Denies myalgias Neuro Reports Normal hearing present and Denies headache(s) Endo Denies excessive sweating Dharmesh/Lymph Denies lymphadenopathy Aller/Immun Denies itchy eyes, Denies seasonal rhinorrhea and Denies wheezing Physical Exam Vital Signs: Last Vital Signs Pulse 79 12/10/24 09:40 BP 146/88 H 12/10/24 09:40 Pulse Ox 97 12/10/24 09:40 Oxygen Delivery Method Room Air 12/10/24 09:40 BMI result Body Mass Index 28.7 Const General: cooperative, healthy appearing, comfortable, no acute distress, well developed and alert Nutritional Appearance: obese Orientation/consciousness: patient oriented x3 Limitations: no limitations HEENT Head: Yes normal to inspection, Yes normocephalic and Yes atraumatic Ears: hearing grossly normal bilaterally and external ears normal Eyes General: appearance normal, both eyes and all related structures Eyelids: Yes eyelids normal Sclerae: sclerae normal EOM: EOMs intact bilaterally Neck Neck: Yes normal visual inspection and Yes no lymphadenopathy Lymphatic: no lymphadenopathy noted Chest Chest palpation & inspection: normal inspection of the chest Resp Effort & Inspection: normal respiratory effort, able to speak in complete sentences, no audible wheezes, no cough, no stridor, not tachypneic, no tripod positioning and no use of accessory muscles Auscultation: clear to auscultation bilaterally Cardio Jugular venous distension: no JVD Rate: regular rate Rhythm: regular rhythm Skin Other: warm, dry General skin exam: no rashes or lesions noted Neuro General: patient oriented x3 Cranial nerves: Yes Normal hearing present Cognition (Neuro): normal cognition Gait exam (Neuro): Normal gait present Extrem General: Yes normal to inspection, Yes capillary refill normal, Yes no clubbing, cyanosis or edema and Yes no pedal edema Psych Appearance: grossly normal and well kempt Speech and movement: Normal speech and movement present and Clear speech present Affect: normal affect Attitude: cooperative Thought process: Normal thought process present Thought content: Normal thought content present Insight: Good insight present (Psych) Judgement: Good judgement present (Psych) Assessment & Plan Assessment & Plan (1) Obstructive sleep apnea: Code(s): G47.33 - Obstructive sleep apnea (adult) (pediatric) Category: Medical (2) Asthma: Code(s): J45.909 - Unspecified asthma, uncomplicated Category: Medical Plan Reviewed sleep study results with patient which revealed an AHI of 11.1, however in supine AHI 30, lateral AHI 9. Average oxygen saturation 94%, lowest 84% and <88% for 0.6 minutes. Given persistence of CRISELDA, will send order for replacement unit for CPAP therapy in APAP mode and pressure settings of 6-16 cmH20 with close monitoring for compliance and benefits. Sleep hygiene education reviewed including importance of positional therapy. He is aware if there are any issues with the mask or CPAP machine, to reach out to DME company. Patient has a h/o asthma currently denies respiratory symptoms, aware to call if symptoms become less controlled. All questions were answered and patient is in agreement of plan. Will follow up in 3 months or sooner if needed. Coding Level of Care Code Est Pt Level 4 (93184) Diagnoses Obstructive sleep apnea G47.33 Asthma J45.909
[2024-12-10 09:40] VITALS: BP 146/88; PULSE 79; O2SAT 97; BMI 28.7
--- OUTSIDE RECORDS SUMMARY | 2024-12-10 10:31 | XMS_ITS | Patient Health Record ---
Author Organization [facility] [address] Address [address] [facility] [place] [address] Care Team Providers Care Distribution Analyst Name Role Phone TOMMY JAMIL Unavailable [phone] EDWINYASMINE Llanos Unavailable [phone] GALILEAASHLYN Unavailable [phone] Allergies Allergen (clinical drug ingredient) Drug/Non Drug Allergy documented on EMR Reaction Allergy Type Onset Date Status PCN (uncoded) rash Allergy Active albuterol Albuterol heart palpitations Drug Allergy Active Pollen Pollen Unknown Allergy Active Results Component Value Reference Range Notes TSH+T3+Free T4+T3 Free Reviewed date:11/03/2024 12:05:17 PM Interpretation: Performing Lab:[facility], [address] [facility], [place], Phone - [phone], Director - Luis Felipey Notes/Report: TSH-ICMA 0.29 Reference Range: Non- Adult 0.450-4.500 Triiodothyronine (T-3), Serum 101 Reference Range: Adults: 55 - 170 Free T-3 3.8 Reference Range: >=20y: 2.0 - 4.4 Free T4 by Dialysis/Television Cameraman 1.5 This test was developed and its performance characteristics determined by [facility]. It has not been cleared or approved by the Food and Drug Administration. Reference Range: Pubertal Children and Adults: 0.8 - 1.7 Hemoglobin A1c Reviewed date:11/03/2024 12:05:22 PM Interpretation: Performing Lab:[facility], [facility], [place], Phone - [phone], Director - MDAmritadry Notes/Report: Hemoglobin A1c 7.6 Reference Range: [place] Diabetes Association (ADA) Guidelines: <5.7: Decreased risk for diabetes 5.7 - 6.4: Increased risk for diabetes >6.4: Ongoing Hyperglycemia of any cause <7.0: Glycemic control for adults with diabetes Estimated Average Glucose 171 PSA (Reflex To Free) (Serial )-[id number] Reviewed date:11/03/2024 08:20:01 AM Interpretation: Performing Lab:[facility], [address] [facility], Phone - [phone], Director - Teodoro Notes/Report: Prostate Specific Ag 0.7 0.0-4.0 ng/mL Hortensia ECLIA methodology. . According to the [place] U[employer] Association, Serum PSA should decrease and [...] Reviewed date:11/03/2024 12:05:06 PM Interpretation: Performing Lab:[facility], [address] [facility], [place], Phone - [phone], Director - Teodoro Notes/Report: Glucose 154 70-99 [...] IU/L ALT (SGPT) 51 0-44 IU/L Lipid Panel-[id number] Reviewed date:11/03/2024 12:05:12 PM Interpretation: Performing Lab:[facility], [address] [facility], Phone - [phone], Director - Teodoro Notes/Report: Cholesterol, Total 152 100-199 mg/dL Triglycerides 82 0-149 mg/dL HDL Cholesterol 39 >39 mg/dL VLDL Cholesterol Luis Carlos 16 5-40 mg/dL LDL Chol Calc (NIH) 97 0-99 mg/dL Vitamin D, 77-Umsejks-480642 Reviewed date:11/03/2024 12:06:10 PM Interpretation: Performing Lab:[facility], [address] [place] [address], Phone - [phone], Director - Teodoro Notes/Report: Vitamin D, 25-Hydroxy 18.6 30.0-100.0 ng/mL Vitamin D deficiency has been defined by the [place] [employer] and an Endocrine Society practice guideline as a level of serum 25-OH vitamin D less than 20 ng/mL (1,2). The Endocrine Society went on to further define vitamin D insufficiency as a level between 21 and 29 ng/mL (2). 1. IOM ([place] [employer]). 2010. Dietary reference intakes for calcium and D. [place]: The National Academies Press. 2. Sadia MF, Sirena NC, Efren-Osiel GILMAN, et al. Evaluation, treatment, and prevention of vitamin D deficiency: an Endocrine Society clinical practice guideline. JCEM. 2010; 96(7):1911-30. CBC With Differential/Platel et-[id number] Reviewed date:11/03/2024 08:20:01 AM Interpretation: Performing Lab:[facility], [address] [facility], Phone - [phone], Director - Teodoro Notes/Report: WBC 7.3 3.4-10.8 x10E3/uL RBC 4.76 [...] Immature Grans (Abs) 0.0 0.0-0.1 x10E3/uL Vitamin [id number] Reviewed date:11/03/2024 08:11:16 AM Interpretation: Performing Lab:[facility], [address] [facility], Phone - [phone], Director - MDJodry Notes/Report: Vitamin B12 075 240-8038 pg/mL EKG Reviewed date:06/18/2024 10:14:51 AM Interpretation: Performing Lab: Notes/Report: ECGDiastolicBP 78 ECGHr 82 ECGPRInterval 200 ECGPWaveAxis 42 ECGQRSDuration 100 ECGQrsWaveAxis 4 ECGQTcInterval 404 ECGQTInterval 366 ECGSystolicBP 132 ECGTWaveAxis 136 RR_DiastolicBP 0 RR_MaxRRInterval 0 RR_MeanHR 0 RR_MeanRRInterval 0 RR_MinRRInterval 0 RR_NumBeats 0 RR_NumNormalBeats 0 RR_SystolicBP 0 Comp. Metabolic Panel (14)-3 75044 Reviewed date:12/18/2023 02:12:11 PM Interpretation: Performing Lab:[facility], [address] [facility], [place], Phone - [phone], Director - MDJodry Notes/Report: Glucose 156 70-99 mg/dL BUN 13 [...] IU/L ALT (SGPT) 46 0-44 IU/L Lipid Panel-[id number] Reviewed date:12/18/2023 02:12:11 PM Interpretation: Performing Lab:[facility], [address] [place] [address], Phone - [phone], Director - MDJodry Notes/Report: Cholesterol, Total 165 100-199 mg/dL Triglycerides 145 0-149 mg/dL HDL Cholesterol 40 >39 mg/dL VLDL Cholesterol Luis Carlos 26 5-40 mg/dL LDL Chol Calc (NIH) 99 0-99 mg/dL Albumin/Creatinine Ratio,Uri ne-[id number] Reviewed date:12/18/2023 02:12:11 PM Interpretation: Performing Lab:[facility], [address] [place] [address], Phone - [phone], Director - MDJodry Notes/Report: Creatinine, Urine 180.4 Not Estab. mg/dL Albumin, Urine 64.6 Not Estab. ug/mL Alb/Creat Ratio 36 0-29 mg/g creat Normal: 0 - 29 Moderately increased: 30 - 300 Severely increased: >300 Triiodothyronine (T3), Free- [id number] Reviewed date:03/11/2024 08:00:28 AM Interpretation: Performing Lab:[facility], [address] [place] [address], Phone - [phone], Director - MDJodry Notes/Report: Triiodothyronine (T3), Free 3.5 2.0-4.4 pg/mL CBC With Differential/Platel et-[id number] Reviewed date:12/18/2023 02:12:11 PM Interpretation: Performing Lab:[facility] [address] [place] [address], Phone - [phone], Director - MDJodry Notes/Report: WBC 7.9 3.4-10.8 [...] % Immature Grans (Abs) 0.0 0.0-0.1 x10E3/uL TSH-[id number] Reviewed date:03/11/2024 08:00:28 AM Interpretation: Performing Lab:[facility] [address] [place] [address], Phone - [phone], Director - MDJodry Notes/Report: TSH 0.558 0.450-4.500 uIU/mL Thyroxine (T4) Free, Direct- [id number] Reviewed date:03/11/2024 08:00:28 AM Interpretation: Performing Lab:[facility] [address] [place] [address], Phone - [phone], Director - MDJodry Notes/Report: T4,Free(Direct) 1.62 0.82-1.77 ng/dL Hemoglobin X0v-[id number] Reviewed date:12/18/2023 02:12:11 PM Interpretation: Performing Lab:[facility] [address] [place] [address], Phone - [phone], Director - MDJodry Notes/Report: Hemoglobin A1c 8.8 4.8-5.6 % . Prediabetes: 5.7 - 6.4 Diabetes: >6.4 Glycemic control for adults with diabetes: <7.0 Reason For Referral Reason evaluate & treat Diagnosis 1 Mouth breathing (R06 .5) Referral Organization [facility] Referring Provider First Name ASHLYN Referring Provider Last Name GALILEA Referring Provider [facility] Internal edicine Referred Provider Specialty Ear, nose an d throat surgeon Clinical Notes BluLiam hernandez 01/11 09:00:14 AM > faxed pt info to [facility] p) [phone] f) [phone], Carleen Zayas 02/19/2024 02:48:55 PM > Scheduled for 08/29 at 11:15 am. Pt aware Referral Priority Routine Reason Evaluate& Treat Diagnosis 1 Uncontrolled mild pe rsistent allergic asthma (J45.30) Referral Organization [facility] Referring Provider First Name TOMMY Referring Provider Last Name TONY Referring Provider [facility] edicine Referred Provider Specialty Allergy/Immu nology General Notes Barb Aguirre 2024 11:46:29 AM > filled out form for [facility] and faxed over with recent notes, T : [phone] F : [phone] Clinical Notes Carleen Zayas 02:56:59 PM > Scheduled for 06/05 at 9:30 am. Pt aware Referral Priority Routine Reason Dr soto Diagnosis 1 CRISELDA (obstructive sle ep apnea) (G47.33) Referral Organization [facility] Referring Provider First Name ASHLYN Referring Provider Last Name GALILEA Referring Provider [facility] edicine Referred Provider Chloe Soto Referred Provider Specialty Pulmonology General Notes EVERETTE BARNARD 0 06/04/2024 10:22:35 AM >[address] [place] [address], [address] [address], [phone], [phone] Clinical Notes Carleen Zayas 07/2024 03:04:47 PM > The patient canceled his appointment for 06/25 and has not rescheduled yet Referral Priority Routine Reason Dr. Steele Diagnosis 1 CRISELDA (obstructive sle ep apnea) (G47.33) Referral Organization [facility] Referring Provider First Name ASHLYN Referring Provider Last Name GALILEA Referring Provider 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) Referral Organization [facility] [address] Referring Provider First Name ASHLYN Referring Provider Last Name GALILEA Referring Provider [facility] Internal edicine Referred Provider Specialty Vascular Lety kristie General Notes JENNYADIRA THIBODEAUXEVERETTE 0 07/23/2024 04:14:07 PM >information filled out on form and faxed to [facility], [phone], fax: [phone] Clinical Notes Carleen Zayas 01:02:09 PM > refaxed [phone], Carleen Zayas 08/06/2024 01:40:51 PM > refaxed to [phone], Carleen Zayas 08/11/2024 01:37:33 PM >, EVERETTE BARNARD 08/15/2024 11:37:56 AM >[facility] does not see pt unless it is in the legs, resent referral to [facility], p- , [phone], Carleen Zayas 08/22/2024 02:33:54 PM > Scheduled for 09/23 at 8:20 am. Pt aware Referral Priority Routine Reason [facility] owens Diagnosis 1 Hiatal hernia (K44.9 ) Referral Organization [facility] [address] Referring Provider First Name ASHLYN Referring Provider Last Name GALILEA Referring Provider [facility] edicine Referred Provider Naya OWENS Referred Provider Specialty Gastroentero logy General Notes EVON EVERETTE 0 10/15/2024 10:45:36 AM >Information sent to Dr owens with [facility], p- [phone], f- [phone] Referral Priority Routine Medications Medication SIG (Take, [...] week; Duration: 30 days 05/29/2024 Active Pen Cordova 32G X 6 MM as directed; Dura [...] 28 days 10/27/2024 Active Cholecalciferol 1.25 MG (24010 UT) 1 capsule Orally once a week; [...] Are you a nonsmoker Section Notes: [facility] Administrator Tob: None ETOH: Rare [facility] Administrator Tob: None ETOH: Rare [facility] Administrator Tob: None ETOH: Rare [facility] Administrator Tob: None ETOH: Rare [facility] Administrator Tob: None ETOH: Rare [facility] Administrator Tob: None ETOH: Rare [facility] Administrator Tob: None ETOH: Rare Problems Problem Type [...] 2 diabetes mellitus without complication, unspecified whether intermediate insulin use (E11.9) Active confirmed Problem Information [...] Vital Signs Heart Rate 76 /min 10/27/2024 Oximetry 93 % 10/27/2024 Blood pressure diastolic 80 mm Hg 10/27/2024 Height 69 in 10/27/2024 Blood pressure systolic 132 mm Hg 10/27/2024 Weight 193.4 lbs 10/27/2024 BMI 28.56 kg/m2 10/27/2024 Encounters Encounter Location Date Provider Diagnosis [facility] [address] [place] [address] 12/20/2023 YASMINE PINEDA Type 2 diabetes diaz itus without complication, without long-term current use of insulin E11.9 ; Hyperglycemia due to diabetes mellitus E11.65 ; Dyslipidemia E78.5 and Hypothyroidism (acquired) E03.[address] [place] [address] 01/31/2024 ASHLYN GALILEA Type 2 diabetes with complication E11.8 ; Cataract extraction status, left eye Z98.42 ; Obesity, unspecified E66.9 ; Hyperthyroidism E05.90 ; Mouth breathing R06.5 and CRISELDA (obstructive sleep apnea) G47.[address] [facility] [place] [address] 03/13/2024 ASHLYN GALILEA Controlled type 2 di abetes mellitus with hyperglycemia, without long-term current use of insulin E11.65 ; Type 2 diabetes with complication E11.8 ; Cataract extraction status, left eye Z98.42 ; Obesity, unspecified E66.9 ; Hyperthyroidism E05.90 ; Mouth breathing R06.5 and CRISELDA (obstructive sleep apnea) G47.[address] [place] [address] 05/29/2024 ASHLYN GALILEA Controlled type 2 di abetes mellitus with hyperglycemia, without long-term current use of insulin E11.65 ; Type 2 diabetes with complication E11.8 ; Cataract extraction status, left eye Z98.42 ; Obesity, unspecified E66.9 ; Hyperthyroidism E05.90 ; Mouth breathing R06.5 and CRISELDA (obstructive sleep apnea) G47.[address] [place] [address] 06/18/2024 ASHYLN GALILEA Controlled type 2 di abetes mellitus [...] on swallowing R13.10 and Vision changes H53.[address] [place] [address] 10/27/2024 ASHLYN GALILEA Controlled type 2 di [...] of blood pressure without abnormal findings Z01.[address] [facility] [address] [place] [address] 02/05/2024 ASHLYN GALILEA Type 2 diabetes with complication E11.[address] [place] [address] 02/13/2024 TALAL JAMIL [facility] [address] [address] 04/24/2024 ASHLYN GALILEA [facility] [address] [address] 05/29/2024 ASHLYN GALILEA [facility] [address] [place] [address] 06/03/2024 ASHLYN GALILEA [facility] [address] [address] 06/18/2024 TALAL JAMIL Controlled type 2 di abetes mellitus with hyperglycemia, without long-term current use of insulin E11.65 [facility] [address] [address] 07/15/2024 ASHLYN GALILEA [facility] [address] [place] [address] 07/16/2024 ASHLYN GALILEA [facility] [address] [address] 07/21/2024 ASHLYN GALILEA [facility] [address] [address] 09/11/2024 ASHLYN GALILEA [facility] [address] [facility] [address] [place] [address] 10/09/2024 TALAL JAMIL [facility] [address] [place] [address] 10/23/2024 ASHLYN CALERO [facility] [address] [facility] [address] [place] [address] 10/27/2024 ASHLYN CALERO Assessments Encounter Date Diagnosis (ICD Code) Assessment Notes Treatment Notes Treatment Clinical Notes Section Notes 12/20/2023 Type 2 diabetes mellitus without complication, [...] Dictation was accomplished with the use of Goojet voice recognition software, prone to medical misidentifications [...] Dictation was accomplished with the use of Goojet voice recognition software, prone to medical misidentifications [...] next visit it any questions/concerns arise. 01/31/2024 Type 2 diabetes with complication (ICD-10 [...] states that he regularly follows with his distribution center assistant. #Nasal congestion: Patient states that he has [...] Dictation was accomplished with the use of Goojet voice recognition software, which is prone to [...] states that he regularly follows with his distribution center assistant. #Nasal congestion: Patient states that he has [...] Dictation was accomplished with the use of Goojet voice recognition software, which is prone to [...] states that he regularly follows with his distribution center assistant.Stat es he is being seen in April [...] Dictation was accomplished with the use of Goojet voice recognition software, which is prone to [...] Dictation was accomplished with the use of Goojet voice recognition software, which is prone to [...] states that he regularly follows with his distribution center assistant. #Nasal congestion: Patient states that he has been continuing to use Flonase, has tried mouth and nasal strips, has tried his CPAP nasal pillow. Has ENT appointment scheduled for August 2024 #Coughing fits: Patient saw admissions director, was placed on a new albuterol inhaler [...] Dictation was accomplished with the use of Goojet voice recognition software, which is prone to [...] states that he regularly follows with his distribution center assistant. #Nasal congestion: Patient states that he has been continuing to use Flonase, has tried mouth and nasal strips, has tried his CPAP nasal pillow. Has ENT appointment scheduled for August 2024 #Coughing fits: Patient saw admissions director, was placed on a new albuterol inhaler [...] Dictation was accomplished with the use of Goojet voice recognition software, which is prone to [...] cardiology #Nasal congestion/allergies : Continue following with admissions director, last appointment was on October 22, 2024 #Swallowing difficulties: Patient did have a barium swallow completed that demonstrated a hiatal hernia, he states he is to have an endoscopy scheduled for December. #Questioning propranolol: Patient is to discuss disc continuing propranolol with his prosthodontist, this appointment is coming up soon #ENT: Ear nose and throat surgeon of [facility] contacted our office on 09/15/2024 in [...] states that he regularly follows with his distribution center assistant. #History of hyperthyroidism: TSH, T3-T4 pending. Thyroid [...] Dictation was accomplished with the use of Goojet voice recognition software, which is prone to [...] cardiology #Nasal congestion/allergies : Continue following with admissions director, last appointment was on October 22, 2024 #Swallowing difficulties: Patient did have a barium swallow completed that demonstrated a hiatal hernia, he states he is to have an endoscopy scheduled for December. #Questioning propranolol: Patient is to discuss disc continuing propranolol with his prosthodontist, this appointment is coming up soon #ENT: Ear nose and throat surgeon of [facility] contacted our office on 09/15/2024 in [...] states that he regularly follows with his distribution center assistant. #History of hyperthyroidism: TSH, T3-T4 pending. Thyroid [...] Dictation was accomplished with the use of Goojet voice recognition software, which is prone to medical misidentifications and grammatical errors. This are unintentional and the practitioner does try to identify and correct these, but some could still be present. Please do not hesitate to contact practitioner for clarification. 10/27/2024 Cataract extraction status, left eye (ICD-10 - Z98.42) Jose is a 58-year-old male with a past medical history of hypothyroidism, type 2 diabetes, essential hypertension, hyperlipidemia, cataract extraction, glaucoma who presents today for a 6-week follow-up visit with no acute concerns today. #Palpitations/tachyc ardia: Currently on propranolol per cardiology #Nasal congestion/allergies : Continue following with admissions director, last appointment was on October 22, 2024 #Swallowing difficulties: Patient did have a barium swallow completed that demonstrated a hiatal hernia, he states he is to have an endoscopy scheduled for December. #Questioning propranolol: Patient is to discuss disc continuing propranolol with his prosthodontist, this appointment is coming up soon #ENT: Ear nose and throat surgeon of [facility] contacted our office on 09/15/2024 in [...] states that he regularly follows with his distribution center assistant. #History of hyperthyroidism: TSH, T3-T4 pending. Thyroid [...] Dictation was accomplished with the use of Goojet voice recognition software, which is prone to [...] states that he regularly follows with his distribution center assistant. #Nasal congestion: Patient states that he has been continuing to use Flonase, has tried mouth and nasal strips, has tried his CPAP nasal pillow. Has ENT appointment scheduled for August 2024 #Coughing fits: Patient saw admissions director, was placed on a new albuterol inhaler [...] Dictation was accomplished with the use of Goojet voice recognition software, which is prone to [...] Dictation was accomplished with the use of Goojet voice recognition software, which is prone to [...] states that he regularly follows with his distribution center assistant.Stat es he is being seen in April [...] Dictation was accomplished with the use of Goojet voice recognition software, which is prone to [...] states that he regularly follows with his distribution center assistant. #Nasal congestion: Patient states that he has [...] Dictation was accomplished with the use of Goojet voice recognition software, which is prone to medical misidentifications and grammatical errors. This are unintentional and the practitioner does try to identify and correct these, but some could still be present. Please do not hesitate to contact practitioner for clarification. 12/20/2023 Dyslipidemia (ICD-10 - E78.5) #Uncontrolled DM [...] Dictation was accomplished with the use of Goojet voice recognition software, prone to medical misidentifications [...] next visit it any questions/concerns arise. 12/20/2023 Hypothyroidism (acquired) (ICD-10 - E03.9) #Uncontrolled [...] Dictation was accomplished with the use of Goojet voice recognition software, prone to medical misidentifications and grammatical errors. This is unintentional and the practitioner does try to identify and correct these, but some could still be present. Please do not hesitate to contact practitioner for clarification. All questions answered to patients satisfaction. Patient verbalized understanding of diagnosis and treatments explained. To call sooner prior to next visit it any questions/concerns arise. 05/29/2024 Cataract extraction status, left eye (ICD-10 [...] Dictation was accomplished with the use of Goojet voice recognition software, which is prone to [...] states that he regularly follows with his distribution center assistant.Stat es he is being seen in April [...] Dictation was accomplished with the use of Goojet voice recognition software, which is prone to [...] states that he regularly follows with his distribution center assistant. #Nasal congestion: Patient states that he has been continuing to use Flonase, has tried mouth and nasal strips, has tried his CPAP nasal pillow. Has ENT appointment scheduled for August 2024 #Coughing fits: Patient saw admissions director, was placed on a new albuterol inhaler [...] Dictation was accomplished with the use of Goojet voice recognition software, which is prone to [...] cardiology #Nasal congestion/allergies : Continue following with admissions director, last appointment was on October 22, 2024 #Swallowing difficulties: Patient did have a barium swallow completed that demonstrated a hiatal hernia, he states he is to have an endoscopy scheduled for December. #Questioning propranolol: Patient is to discuss disc continuing propranolol with his prosthodontist, this appointment is coming up soon #ENT: Ear nose and throat surgeon of [facility] contacted our office on 09/15/2024 in [...] states that he regularly follows with his distribution center assistant. #History of hyperthyroidism: TSH, T3-T4 pending. Thyroid [...] Dictation was accomplished with the use of Goojet voice recognition software, which is prone to medical misidentifications and grammatical errors. This are unintentional and the practitioner does try to identify and correct these, but some could still be present. Please do not hesitate to contact practitioner for clarification. 01/31/2024 Hyperthyroidism (ICD-10 - E05.90) Jose is [...] states that he regularly follows with his distribution center assistant. #Nasal congestion: Patient states that he has [...] Dictation was accomplished with the use of [employer] voice recognition software, which is prone to medical misidentifications and grammatical errors. This are unintentional and the practitioner does try to identify and correct these, but some could still be present. Please do not hesitate to contact practitioner for clarification. 10/27/2024 Hyperthyroidism (ICD-10 - E05.90) Jose is a 58-year-old male with a past medical history of hypothyroidism, type 2 diabetes, essential hypertension, hyperlipidemia, cataract extraction, glaucoma who presents today for a 6-week follow-up visit with no acute concerns today. #Palpitations/tachyc ardia: Currently on propranolol per cardiology #Nasal congestion/allergies : Continue following with admissions director, last appointment was on October 22, 2024 #Swallowing difficulties: Patient did have a barium swallow completed that demonstrated a hiatal hernia, he states he is to have an endoscopy scheduled for December. #Questioning propranolol: Patient is to discuss disc continuing propranolol with his prosthodontist, this appointment is coming up soon #ENT: Ear nose and throat surgeon of [facility] contacted our office on 09/15/2024 in [...] states that he regularly follows with his distribution center assistant. #History of hyperthyroidism: TSH, T3-T4 pending. Thyroid [...] Dictation was accomplished with the use of [employer] voice recognition software, which is prone to [...] states that he regularly follows with his distribution center assistant. #Nasal congestion: Patient states that he has been continuing to use Flonase, has tried mouth and nasal strips, has tried his CPAP nasal pillow. Has ENT appointment scheduled for August 2024 #Coughing fits: Patient saw admissions director, was placed on a new albuterol inhaler [...] Dictation was accomplished with the use of [employer] voice recognition software, which is prone to [...] states that he regularly follows with his distribution center assistant.Stat es he is being seen in April for a potential surgery consultation #Nasal congestion: Patient states that he has been continuing to use Flonase, has tried mouth and nasal strips, has tried his CPAP nasal pillow. Has ENT appointment scheduled for August 2024 #Coughing fits: Patient encouraged to trial a alternative antihistamine such as Gnoc, Zyrtec or Claritin as his body may [...] Dictation was accomplished with the use of [employer] voice recognition software, which is prone to [...] Dictation was accomplished with the use of [employer] voice recognition software, which is prone to [...] states that he regularly follows with his distribution center assistant. #Nasal congestion: Patient states that he has [...] Dictation was accomplished with the use of [employer] recognition software, which is prone to medical [...] states that he regularly follows with his distribution center assistant.Stat es he is being seen in April [...] Dictation was accomplished with the use of [employer] voice recognition software, which is prone to [...] Dictation was accomplished with the use of [employer] voice recognition software, which is prone to [...] states that he regularly follows with his distribution center assistant. #Nasal congestion: Patient states that he has [...] Dictation was accomplished with the use of [employer] voice recognition software, which is prone to [...] states that he regularly follows with his distribution center assistant. #Nasal congestion: Patient states that he has been continuing to use Flonase, has tried mouth and nasal strips, has tried his CPAP nasal pillow. Has ENT appointment scheduled for August 2024 #Coughing fits: Patient saw admissions director, was placed on a new albuterol inhaler [...] Dictation was accomplished with the use of [employer] voice recognition software, which is prone to [...] cardiology #Nasal congestion/allergies : Continue following with admissions director, last appointment was on October 22, 2024 #Swallowing difficulties: Patient did have a barium swallow completed that demonstrated a hiatal hernia, he states he is to have an endoscopy scheduled for December. #Questioning propranolol: Patient is to discuss disc continuing propranolol with his prosthodontist, this appointment is coming up soon #ENT: Ear nose and throat surgeon of [facility] contacted our office on 09/15/2024 in [...] states that he regularly follows with his distribution center assistant. #History of hyperthyroidism: TSH, T3-T4 pending. Thyroid [...] Dictation was accomplished with the use of [employer] voice recognition software, which is prone to [...] states that he regularly follows with his distribution center assistant. #Nasal congestion: Patient states that he has been continuing to use Flonase, has tried mouth and nasal strips, has tried his CPAP nasal pillow. Has ENT appointment scheduled for August 2024 #Coughing fits: Patient saw admissions director, was placed on a new albuterol inhaler [...] Dictation was accomplished with the use of [employer] voice recognition software, which is prone to [...] states that he regularly follows with his distribution center assistant.Stat es he is being seen in April [...] Dictation was accomplished with the use of [employer] voice recognition software, which is prone to [...] cardiology #Nasal congestion/allergies : Continue following with admissions director, last appointment was on October 22, 2024 #Swallowing difficulties: Patient did have a barium swallow completed that demonstrated a hiatal hernia, he states he is to have an endoscopy scheduled for December. #Questioning propranolol: Patient is to discuss disc continuing propranolol with his prosthodontist, this appointment is coming up soon #ENT: Ear nose and throat surgeon of [facility] contacted our office on 09/15/2024 in [...] states that he regularly follows with his distribution center assistant. #History of hyperthyroidism: TSH, T3-T4 pending. Thyroid [...] Dictation was accomplished with the use of [employer] voice recognition software, which is prone to [...] states that he regularly follows with his distribution center assistant.Stat es he is being seen in April [...] Dictation was accomplished with the use of [employer] voice recognition software, which is prone to [...] states that he regularly follows with his distribution center assistant. #Nasal congestion: Patient states that he has been continuing to use Flonase, has tried mouth and nasal strips, has tried his CPAP nasal pillow. Has ENT appointment scheduled for August 2024 #Coughing fits: Patient saw admissions director, was placed on a new albuterol inhaler [...] Dictation was accomplished with the use of [employer] voice recognition software, which is prone to [...] cardiology #Nasal congestion/allergies : Continue following with admissions director, last appointment was on October 22, 2024 #Swallowing difficulties: Patient did have a barium swallow completed that demonstrated a hiatal hernia, he states he is to have an endoscopy scheduled for December. #Questioning propranolol: Patient is to discuss disc continuing propranolol with his prosthodontist, this appointment is coming up soon #ENT: Ear nose and throat surgeon of [facility] contacted our office on 09/15/2024 in [...] states that he regularly follows with his distribution center assistant. #History of hyperthyroidism: TSH, T3-T4 pending. Thyroid [...] Dictation was accomplished with the use of [employer] voice recognition software, which is prone to [...] cardiology #Nasal congestion/allergies : Continue following with admissions director, last appointment was on October 22, 2024 #Swallowing difficulties: Patient did have a barium swallow completed that demonstrated a hiatal hernia, he states he is to have an endoscopy scheduled for December. #Questioning propranolol: Patient is to discuss disc continuing propranolol with his prosthodontist, this appointment is coming up soon #ENT: Ear nose and throat surgeon of [facility] contacted our office on 09/15/2024 in [...] states that he regularly follows with his distribution center assistant. #History of hyperthyroidism: TSH, T3-T4 pending. Thyroid [...] Dictation was accomplished with the use of [employer] voice recognition software, which is prone to [...] states that he regularly follows with his distribution center assistant. #Nasal congestion: Patient states that he has been continuing to use Flonase, has tried mouth and nasal strips, has tried his CPAP nasal pillow. Has ENT appointment scheduled for August 2024 #Coughing fits: Patient saw admissions director, was placed on a new albuterol inhaler [...] Dictation was accomplished with the use of [employer] voice recognition software, which is prone to [...] cardiology #Nasal congestion/allergies : Continue following with admissions director, last appointment was on October 22, 2024 #Swallowing difficulties: Patient did have a barium swallow completed that demonstrated a hiatal hernia, he states he is to have an endoscopy scheduled for December. #Questioning propranolol: Patient is to discuss disc continuing propranolol with his prosthodontist, this appointment is coming up soon #ENT: Ear nose and throat surgeon of [facility] contacted our office on 09/15/2024 in [...] states that he regularly follows with his distribution center assistant. #History of hyperthyroidism: TSH, T3-T4 pending. Thyroid [...] Dictation was accomplished with the use of [employer] voice recognition software, which is prone to [...] cardiology #Nasal congestion/allergies : Continue following with admissions director, last appointment was on October 22, 2024 #Swallowing difficulties: Patient did have a barium swallow completed that demonstrated a hiatal hernia, he states he is to have an endoscopy scheduled for December. #Questioning propranolol: Patient is to discuss disc continuing propranolol with his prosthodontist, this appointment is coming up soon #ENT: Ear nose and throat surgeon of [facility] contacted our office on 09/15/2024 in [...] states that he regularly follows with his distribution center assistant. #History of hyperthyroidism: TSH, T3-T4 pending. Thyroid [...] Dictation was accomplished with the use of [employer] voice recognition software, which is prone to [...] states that he regularly follows with his distribution center assistant. #Nasal congestion: Patient states that he has been continuing to use Flonase, has tried mouth and nasal strips, has tried his CPAP nasal pillow. Has ENT appointment scheduled for August 2024 #Coughing fits: Patient saw admissions director, was placed on a new albuterol inhaler [...] Dictation was accomplished with the use of [employer] voice recognition software, which is prone to [...] cardiology #Nasal congestion/allergies : Continue following with admissions director, last appointment was on October 22, 2024 #Swallowing difficulties: Patient did have a barium swallow completed that demonstrated a hiatal hernia, he states he is to have an endoscopy scheduled for December. #Questioning propranolol: Patient is to discuss disc continuing propranolol with his prosthodontist, this appointment is coming up soon #ENT: Ear nose and throat surgeon of [facility] contacted our office on 09/15/2024 in [...] states that he regularly follows with his distribution center assistant. #History of hyperthyroidism: TSH, T3-T4 pending. Thyroid [...] Dictation was accomplished with the use of [employer] voice recognition software, which is prone to [...] states that he regularly follows with his distribution center assistant. #Nasal congestion: Patient states that he has been continuing to use Flonase, has tried mouth and nasal strips, has tried his CPAP nasal pillow. Has ENT appointment scheduled for August 2024 #Coughing fits: Patient saw admissions director, was placed on a new albuterol inhaler [...] Dictation was accomplished with the use of [employer] voice recognition software, which is prone to [...] (14) 10/23/2019 CBC 10/23/2019 Urinalysis 10/23/2019 EKG 12/30/2020 EKG 08/06/2019 HEMOGLOBIN A1C 06/29/2020 HEMOGLOBIN A1C 08/02/2020 Sex Hormone Binding Globulin 10/18/2021 Cologuard 05/07/2019 Cologuard 09/03/2023 LIPID PANEL, STANDARD 09/03/2023 LIPID PANEL, STANDARD 06/14/2021 LIPID PANEL, STANDARD 12/29/2022 LIPID PANEL, STANDARD 03/09/2021 LIPID PANEL, STANDARD 06/18/2024 MICROALBUMIN, RANDOM URINE (W/CREATININE ) 06/14/2021 MICROALBUMIN, RANDOM URINE (W/CREATININE ) 09/03/2023 COMPREHENSIVE METABOLIC PANEL 09/03/2023 COMPREHENSIVE METABOLIC PANEL 12/29/2022 COMPREHENSIVE METABOLIC PANEL 06/14/2021 COMPREHENSIVE METABOLIC PANEL 03/09/2021 COMPREHENSIVE METABOLIC PANEL 06/18/2024 BASIC METABOLIC PANEL 01/06/2021 BASIC METABOLIC PANEL 06/18/2024 POTASSIUM 12/30/2020 MAGNESIUM 01/06/2021 CBC (INCLUDES DIFF/PLT) 06/18/2024 CBC (INCLUDES DIFF/PLT) 03/09/2021 CBC (INCLUDES DIFF/PLT) 06/14/2021 CBC (INCLUDES DIFF/PLT) 12/29/2022 CBC (INCLUDES DIFF/PLT) 09/03/2023 URINALYSIS, COMPLETE 12/29/2022 URINALYSIS, COMPLETE 03/09/2021 HEMOGLOBIN A1c 01/31/2021 HEMOGLOBIN A1c 03/09/2021 HEMOGLOBIN A1c 05/02/2022 HEMOGLOBIN A1c 06/14/2021 HEMOGLOBIN A1c 12/29/2022 HEMOGLOBIN A1c 09/03/2023 HEMOGLOBIN A1c 06/18/2024 INSULIN 05/02/2022 VITAMIN B12 06/18/2024 PSA (FREE AND TOTAL) 06/18/2024 PSA (FREE AND TOTAL) 12/29/2022 T4, FREE 01/31/2024 TSH 01/31/2024 TSH 12/29/2022 T3, FREE 01/31/2024 VITAMIN D,25-OH,TOTAL,IA 06/18/2024 VITAMIN D,25-OH,TOTAL,IA 12/29/2022 US Thyroid 06/18/2024 TSH+T4F+T3Free 06/18/2024 PPC Hemoglobin A1C 06/18/2024 PPC Hemoglobin A1C 05/29/2024 PPC Hemoglobin A1C 10/27/2024 Next Appt Details Provider Name:ASHLYN CALERO, 08:00:00 AM, [address], [place], [address], Insurance Providers Payer Name Payer Address Payer Phone Subscriber Number Group Number Insured Name Patient Relationship to Insured Coverage Start Date Coverage End Date [facility] [address] [place] [phone] [id number] Guilherme AUSTIN JOSE Self - patient is the insured Medical (General) History Medical History History ICD Code Hyperthyroidism E05.90 Type 2 diabetes mellitus wit hout complication, unspecified whether keno terminal operator insulin use E11.9 Essential hypertension I10 Hyperlipidemia, unspecified E78.5 Cataract extraction status, left eye Z98 .42 Glaucoma secondary to other eye disorders, unspecified eye, stage unspecified H40.50X0 Hiatal hernia K44.9 Atherosclerosis I70.90 Elevated subclavian velocity (L)
--- OUTSIDE RECORDS SUMMARY | 2024-12-10 10:31 | XMS_ITS | Clinical Summary ---
Author Organization [facility] Address [address] [place] [address] Phone Care Team Providers Care Watch Parts Inspector Name Role Phone Pau Peters Primary Care Provider [phone] Allergies Active Allergy Reactions Criticality Noted Date [...] Description 11/04/2024 9:50 AM EDT Office Visit [facility] [address] [facility] [address] [place] [address] Jamel Galloway MD Tachycardia (Primary Dx); Palpitations; Primary hypertension; Vasovagal attack; PVD (peripheral vascular disease) ([facility] V24) 10/15/2024 Telephone Gastroenterology - [place] [address] [facility] [address] [place] [address] Naya Wallace MD from Last 3 Months Medical History Medical History Date Comments Asthma DX:Asthma Cough DX:Cough 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 ([facility] V24, [facility] V28) DX:Type 2 marissa betes mellitus with complications ([facility]) Social History Tobacco Use Types Packs/Day Years [...] Screening: FIT-DNA (Cologuard) 09/05/2026 09/06/2023, 09/06/2023, 08/23/2019 RSV Immunization Adult Patients (1 - 1-dose 75+ series) 2041 HIB Vaccines Aged Out No longer eligi [...] GEMUSE QTc 418 ms GEMUSE P Wave Grand Chain 55 degrees GEMUSE R Grand Chain 39 degrees GEMUSE T Grand Chain 115 degrees GEMUSE ECG Interpretation Normal sinus rhythm T wave abnormality, consider anterolateral ischemia Abnormal ECG No previous ECGs available Confirmed by MD Nilesh, Jamel ([id number]) on 11/04/2024 12:37:30 PM GEMUSE 11/04/2024 10:0 4 AM EDT 11/04/2024 12:37 PM EDT us Jamel Galloway MD ECG ORDERABLES Final Res ult GEMUSE from Last 3 Months Insurance [facility] Care Teams Watch Parts Inspector Relationship Specialty Start Date End Date Pau Peters PA [address] [place] [id number] PCP - General 10/15/24
== END 2024-12-10 09:56 | disposition home or self-care (01) ==
LOC: HO.HPSW 09:38
PROVIDERS: Visit Provider Nurse Practitioner Family
DX: G47.33 Obstructive sleep apnea (adult) (pediatric) (principal); J45.909 Unspecified asthma, uncomplicated
CPT/HCPCS: 99214